=== PATIENT | female | born 1990 | race Asian ===

== ENCOUNTER 2020-01-10 12:57 | Emergency (ER) | payer BC, SELFPAY ==
--- NOTE | ~2020-01-10 | XR_ITS ---
EXAMINATION: XR abdomen/kub 1V DATE: 01/10/2020 13:55 INDICATION: Abdominal pain TECHNIQUE: A supine view of the abdomen was obtained. COMPARISON: 05/26/2019 FINDINGS: Moderate amount of stool scattered throughout the colon. No dilated gas-filled loops of bowel to sugg est obstruction. Unchanged pattern of small calcified phleboliths in the pelvis. Bilateral hypoplasti c riblets at L1. The tiny density previously seen overlying the tip of the left sciatic riblet is no longer visualized and may have represented a renal stone. No other suspicious calcifications in the a bdomen or pelvis. Small left-sided os acetabuli. IMPRESSION: 1. Normal bowel gas pattern. No evident urolithiasis. Reviewed, dictated and finalized at location A. SALES MANAGER
--- NOTE | 2020-01-10 13:02 | ED.GENADULT ---
HPI - General Adult General Chief complaint: Abdominal Pain Stated complaint: Abdominal Pain Time Seen by Provider: 01/10/20 13:24 Source: patient Mode of arrival: ambulatory Limitations: no limitations History of Present Illness HPI narrative: 29-year-old female patient presents to the [facility] with complaints of left-sided flank pain that started abruptly this morning. Patient states for the last couple of days she has had some nausea. Patient states that her last period was about 32 days ago when she is trying to actively get . Patient denies any vomiting or diarrhea. Patient states she has had some abdominal cramping recently. Patient denies any fevers, chest pain or shortness of breath. Patient denies any pain with urination. Related Data Home Medications Medication Instructions Recorded Confirmed 01/10/20 Allergies Allergy/AdvReac Type Severity Reaction Status Date / Time Sulfa (Sulfonamide Allergy Intermediate Vomiting Verified 12/26/19 13:23 Antibiotics) Review of Systems Review of Systems: Narrative: CONSTITUTIONAL: Denies fever, chills, or sweats. EYES: Denies visual changes, redness, or discharge. ENT: Denies rhinorrhea, congestion, sore throat, or otalgia. CARDIOVASCULAR: Denies chest pain, palpitations, or edema. RESPIRATORY: Denies cough or dyspnea. GASTROINTESTINAL: Denies abdominal pain, positive nausea, denies vomiting, or diarrhea. Positive left flank pain GENITOURINARY: Denies dysuria or hematuria. SKIN: Denies rash or itching. MUSCULOSKELETAL: Denies back pain, joint pain, or myalgia. NEUROLOGIC: Denies headache, numbness, or weakness. PSYCHIATRIC: Denies anxiety or depression. [facility] Past Medical History Medical History Congenital hypothyroidism with diffuse goiter Generalized anxiety disorder Migraine without aura and without status migrainosus, not intractable Social History Social History Smoking status: Never smoker Alcohol intake: current Comments At the time of my signature I agree with nursing past medical history, surgical, social, and family history. There is no relevant family history pertinent to the presenting complaint. Exam Narrative: Exam Narrative: GENERAL: Well-appearing, well-nourished, and in no acute distress. HEAD: Normocephalic, atraumatic. EYES: PERRLA and EOMI. ENT: Nares clear, no rhinorrhea or epistaxis. Mucous membranes moist. NECK: Supple. No lymphadenopathy CHEST: Clear to auscultation. No respiratory distress. HEART: Regular rate and rhythm. No murmur heard. Normal peripheral pulses. ABDOMEN: Soft, flat, nondistended. No guarding, rebound tenderness, or rigid. Patient complains of overall abdominal cramping but no specific pains in any specific quadrant on palpation. No pulsatilla masses. Bowel sounds present in all four quadrants. No organomegaly. Negative Yancey?s sign. No periumbicial tenderness. No Supra public tenderness or distension. Good femoral pulses bilaterally. No hernia noted. No scars or surface trauma. Patient does have some left CVA tenderness on percussion. EXTREMITIES: Normal range of motion. No edema. SKIN: Warm, dry, no rash. NEURO: No focal deficits. Alert and oriented x3. Course Reevaluation(s) Reevaluation #1: Patient is apprehensive about taking the x-ray because she is concerned that her test today could be a false negative. Discussed with patient the pros and cons of doing x-ray today. Discussed with her that if she feels uncomfortable with that she could follow-up with her primary doctor and possibly get an ultrasound to evaluate for possible kidney stone as well as some blood work to see if she truly is . Discussed this with patient. Patient states that she also discussed that with the mother and patient has decided to go ahead and do the x-ray today to look for the kidney
[2020-01-10 13:05] VITALS: BP 115/73; PULSE 77; RESP 16; TEMP 36.6; O2SAT 100
--- NOTE | 2020-01-10 13:17 | PC.NURSE ---
in br to obtain ua spec.
--- NOTE | 2020-01-10 14:12 | PC.NURSE ---
lot boss at bedside with xray result.
== END 2020-01-10 14:25 | disposition home or self-care (01) ==
PROVIDERS: Emergency Provider Nurse Practitioner Family; PCP Family Medicine
DX: R10.9 Unspecified abdominal pain (principal); M62.838 Other muscle spasm; K59.00 Constipation, unspecified; E03.0 Congenital hypothyroidism with diffuse goiter; F41.9 Anxiety disorder, unspecified
CPT/HCPCS: 74018; 81003; 81025; 99213; G0463

== ENCOUNTER 2020-08-31 11:55 | Outpatient (CLI) | payer BC, SELFPAY ==
[2020-08-31 12:34] LABS: Basophils Percent Auto 0.3 % (0.2-1.2); Eosinophils Absolute Auto 0.2 K/mm3 (0-0.3); Eosinophils Percent Auto 2.1 % (0-4.4); Hematocrit 35.7 % (37.0-47.0); Hemoglobin 11.8 g/dL (12.0-15.0); Immature Granulocyte Absolute 0.06 K/mm3 (0.00-0.031); Immature Granulocyte Percent A 0.6 % (0-0.5); Lymphocytes Absolute Auto 2.27 K/mm3 (0.9-3.2); Lymphocytes Percent Auto 23.6 % (18.3-44.2); Mean Corpuscular HGB Conc 33.1 g/dl (32-36); Mean Corpuscular Hemoglobin 27.8 pg (26-34); Monocytes Absolute Auto 0.5 K/mm3 (0.1-0.6); Monocytes Percent Auto 5.5 % (2.6-8.5); Neutrophils Absolute Auto 6.5 K/mm3 (1.3-6.7); Neutrophils Percent Auto 67.9 % (45.5-73.1); Platelet Count Result 283 k/mm3 (150-375); Red Blood Count 4.25 M/mm3 (4.2-5.4); Red Cell Distribution Width 13.5 % (11.5-14.5); White Blood Count 9.6 K/mm3 (4.5-10.0)
[2020-08-31 13:29] LABS: HIV 1/2 Ab P24 Ag Result Negative (Negative)
[2020-08-31 13:29] LABS: Hepatitis B Surface Antigen Negative (Negative)
[2020-08-31 13:45] LABS: Hepatitis C Virus Antibody Negative (Negative)
[2020-08-31 14:23] LABS: Add Urine Microscopic? YES; Appearance Urine Cloudy (Clear); Bacteria Urine 2+ /hpf; Bilirubin Urine Negative (Negative); Blood Urine Negative (Negative); Color Urine Yellow (Yellow); Glucose Urine UA Negative (Negative); Ketones Urine 1+ mg/dL (Negative); Leukocyte Esterase Ur 1+ LEU/UL (NEGATIVE); Mucus Urine Moderate /lpf; Nitrate Urine Negative (Negative); Protein Urine Negative (Negative); Specific Grav Ur 1.016 (1.001-1.035); Squamous Epithelial Cell Urine Moderate /hpf (Few); Urobilinogen Urine Negative mg/dL (<2.0)
[2020-08-31 15:28] LABS: Rubella IgG Antibody > 120.0 IU/ML
[2020-09-03 11:55] LABS: Rapid Plasma Reagin Non-Reactive (NonReactive)
[2020-09-06 11:50] LABS: Hematocrit 36.5 % (35.0-45.0); Hemoglobin 11.9 g/dL (11.7-15.5); MCV 85.9 FL (80.0-100.0); RDW 15.1 % (11.0-15.0); Red Blood Cell Count 4.25 Mill/uL (3.80-5.10)
[2020-09-10 16:01] LABS: CF Result NEGATIVE (NEGATIVE)
== END 2020-08-31 11:56 | disposition home or self-care (01) ==
PROVIDERS: PCP Family Medicine; Visit Provider Student in an Organized Health Care Education/Training Program
DX: Z34.90 Encounter for supervision of normal pregnancy, unspecified, unspecified trimester (principal)
CPT/HCPCS: 36415; 81001; 81220; 81243; 82306; 83021; 84443; 85025; 86592; 86703; 86762; 86787; 86803; 86850; 86900; 86901; 87086; 87340; G0432

== ENCOUNTER 2020-11-30 13:03 | Outpatient (CLI) | payer BC, SELFPAY ==
[2020-11-30 14:41] LABS: Basophils Percent Auto 0.2 % (0.2-1.2); Eosinophils Absolute Auto 0.2 K/mm3 (0-0.3); Eosinophils Percent Auto 1.8 % (0-4.4); Hematocrit 32.7 % (37.0-47.0); Hemoglobin 10.6 g/dL (12.0-15.0); Immature Granulocyte Absolute 0.17 K/mm3 (0.00-0.031); Immature Granulocyte Percent A 1.8 % (0-0.5); Lymphocytes Absolute Auto 1.96 K/mm3 (0.9-3.2); Lymphocytes Percent Auto 20.4 % (18.3-44.2); Mean Corpuscular HGB Conc 32.4 g/dl (32-36); Mean Corpuscular Volume 86.5 fl (80-100); Mean Platelet Volume 9.2 fl (7.4-10.4); Monocytes Absolute Auto 0.6 K/mm3 (0.1-0.6); Monocytes Percent Auto 6.1 % (2.6-8.5); Neutrophils Absolute Auto 6.7 K/mm3 (1.3-6.7); Neutrophils Percent Auto 69.7 % (45.5-73.1); Platelet Count Result 296 k/mm3 (150-375); Red Blood Count 3.78 M/mm3 (4.2-5.4); Red Cell Distribution Width 13.2 % (11.5-14.5); White Blood Count 9.6 K/mm3 (4.5-10.0)
[2020-11-30 14:52] LABS: Glucose 1 Hour PP 50gm Dose 171 mg/dL
== END 2020-11-30 13:04 | disposition home or self-care (01) ==
PROVIDERS: PCP Family Medicine; Visit Provider Student in an Organized Health Care Education/Training Program
DX: Z34.90 Encounter for supervision of normal pregnancy, unspecified, unspecified trimester (principal); Z3A.00 Weeks of gestation of pregnancy not specified
CPT/HCPCS: 36415; 82947; 85025

== ENCOUNTER 2020-12-07 12:06 | Outpatient (CLI) | payer BC, SELFPAY ==
[2020-12-07 13:26] LABS: Glucose Fasting Gestational 84 mg/dL (>/=95)
[2020-12-07 15:00] LABS: Glucose 1 Hour Gest 183 mg/dL (>/=180)
[2020-12-07 15:59] LABS: Glucose 2 Hour Gest 178 mg/dL (>/= 155)
[2020-12-07 16:50] LABS: Glucose 3 Hour Gest 162 mg/dL (>/=140)
== END 2020-12-07 12:07 | disposition home or self-care (01) ==
LOC: ANHLAB 12:07
PROVIDERS: PCP Family Medicine; Visit Provider Student in an Organized Health Care Education/Training Program
DX: O99.810 Abnormal glucose complicating pregnancy (principal); Z3A.00 Weeks of gestation of pregnancy not specified
CPT/HCPCS: 36415; 82951; 82952

== ENCOUNTER 2020-12-14 14:40 | Outpatient (CLI) | payer BC, SELFPAY ==
[2020-12-14 16:39] LABS: Free T4 Free Thyroxine 0.79 ng/mL (0.78-2.19)
[2020-12-18 06:37] LABS: Triiodothyronine T3 Free 2.4 pg/mL (2.3-4.2)
== END 2020-12-14 14:41 | disposition home or self-care (01) ==
LOC: ANHLAB 14:41
PROVIDERS: PCP Family Medicine; Visit Provider Student in an Organized Health Care Education/Training Program
DX: O24.419 Gestational diabetes mellitus in pregnancy, unspecified control (principal); Z3A.00 Weeks of gestation of pregnancy not specified
CPT/HCPCS: 36415; 84439; 84443; 84481

== ENCOUNTER 2020-12-31 13:59 | Outpatient (RCR) | payer BC, SELFPAY | END 2021-03-18 10:28 | disposition home or self-care (01) | LOC: ANHDMC 13:59 | PROVIDERS: PCP Family Medicine; Visit Provider Student in an Organized Health Care Education/Training Program | DX: O24.419 Gestational diabetes mellitus in pregnancy, unspecified control (principal); Z3A.00 Weeks of gestation of pregnancy not specified; Z71.89 Other specified counseling | CPT/HCPCS: G0108 ==

== ENCOUNTER 2021-01-11 13:43 | Outpatient (CLI) | payer BC, SELFPAY ==
[2021-01-11 14:07] LABS: Basophils Percent Auto 0.3 % (0.2-1.2); Eosinophils Absolute Auto 0.2 K/mm3 (0-0.3); Eosinophils Percent Auto 1.5 % (0-4.4); Hematocrit 33.6 % (37.0-47.0); Immature Granulocyte Absolute 0.13 K/mm3 (0.00-0.031); Immature Granulocyte Percent A 1.3 % (0-0.5); Lymphocytes Absolute Auto 2.55 K/mm3 (0.9-3.2); Lymphocytes Percent Auto 25.2 % (18.3-44.2); Mean Corpuscular HGB Conc 32.7 g/dl (32-36); Mean Corpuscular Hemoglobin 27.2 pg (26-34); Mean Platelet Volume 9.5 fl (7.4-10.4); Monocytes Absolute Auto 0.6 K/mm3 (0.1-0.6); Neutrophils Absolute Auto 6.6 K/mm3 (1.3-6.7); Neutrophils Percent Auto 65.7 % (45.5-73.1); Platelet Count Result 267 k/mm3 (150-375); Red Blood Count 4.05 M/mm3 (4.2-5.4); Red Cell Distribution Width 13.1 % (11.5-14.5); White Blood Count 10.1 K/mm3 (4.5-10.0)
[2021-01-11 15:09] LABS: HIV 1/2 Ab P24 Ag Result Negative (Negative)
[2021-01-13 09:06] LABS: Rapid Plasma Reagin Non-Reactive (NonReactive)
== END 2021-01-11 13:44 | disposition home or self-care (01) ==
PROVIDERS: PCP Family Medicine; Visit Provider Student in an Organized Health Care Education/Training Program
DX: Z34.03 Encounter for supervision of normal first pregnancy, third trimester (principal); Z3A.00 Weeks of gestation of pregnancy not specified
CPT/HCPCS: 36415; 85025; 86592; 86703; G0432

== ENCOUNTER 2021-02-10 10:56 | Outpatient (CLI) | payer BC, SELFPAY ==
[2021-02-10 14:01] LABS: Collection Time Urine 24 HOURS
[2021-02-10 14:32] LABS: Creatinine Urine 52.1 mg/dL; Patient Weight 169 Lbs; Total Protein Urine Random 15 mg/dL
[2021-02-10 14:35] LABS: Creatinine Clearance Urine 87.6 ml/min (75-125); Total Protein Urine 24 Hr 315 MG/DAY (28-141); Total Volume 24 Hour Urine 2100 ml
== END 2021-02-10 10:57 | disposition home or self-care (01) ==
LOC: ANHOBOP 11:49
PROVIDERS: Visit Provider Student in an Organized Health Care Education/Training Program
DX: Z34.90 Encounter for supervision of normal pregnancy, unspecified, unspecified trimester (principal); Z3A.00 Weeks of gestation of pregnancy not specified
CPT/HCPCS: 81050; 82575; 84156

== ENCOUNTER 2021-02-15 12:50 | Outpatient (RCR) | payer BC, SELFPAY ==
[2021-02-08 14:19] LABS: Basophils Percent Auto 0.4 % (0.2-1.2); Eosinophils Absolute Auto 0.1 K/mm3 (0-0.3); Hematocrit 35.1 % (37.0-47.0); Hemoglobin 11.5 g/dL (12.0-15.0); Immature Granulocyte Absolute 0.16 K/mm3 (0.00-0.031); Immature Granulocyte Percent A 1.8 % (0-0.5); Lymphocytes Absolute Auto 2.53 K/mm3 (0.9-3.2); Lymphocytes Percent Auto 28.5 % (18.3-44.2); Mean Corpuscular HGB Conc 32.8 g/dl (32-36); Mean Corpuscular Hemoglobin 26.9 pg (26-34); Mean Platelet Volume 10.4 fl (7.4-10.4); Monocytes Absolute Auto 0.7 K/mm3 (0.1-0.6); Monocytes Percent Auto 7.5 % (2.6-8.5); Neutrophils Absolute Auto 5.4 K/mm3 (1.3-6.7); Neutrophils Percent Auto 60.8 % (45.5-73.1); Platelet Count Result 245 k/mm3 (150-375); Red Blood Count 4.28 M/mm3 (4.2-5.4); Red Cell Distribution Width 14.1 % (11.5-14.5); White Blood Count 8.9 K/mm3 (4.5-10.0)
[2021-02-08 14:36] LABS: Alanine Aminotransferase 20 U/L (4-35); Albumin Level 3.5 g/dL (3.5-5.1); Alkaline Phosphatase 314 U/L (38-126); Anion Gap 7 mmol/L (8-16); Aspartate Amino Transferase 30 U/L (14-36); Bilirubin,Total 0.5 mg/dL (0.2-1.3); Blood Urea Nitrogen 7 mg/dL (7-17); Calcium 8.9 mg/dL (8.4-10.2); Carbon Dioxide 23 mmol/L (22-30); Chloride 106 mmol/L (98-107); Estimated Glomerular Filt Rate > 60; Glucose 85 mg/dL (65-105); Potassium 4.4 mmol/L (3.4-5.0); Sodium 136 mmol/L (137-145); Uric Acid 5.9 mg/dL (2.5-7.5)
[2021-02-08 14:39] LABS: Creatinine Urine 140.5 mg/dL; Total Protein Urine Random 13 mg/dL; Ur Ttl Prot Creatinine Ratio 0.09 mg/mg (0-0.20)
[2021-02-08 14:49] LABS: Add Urine Microscopic? YES; Appearance Urine Cloudy (Clear); Bacteria Urine 3+ /hpf; Bilirubin Urine Negative (Negative); Blood Urine Negative (Negative); Color Urine Amber (Yellow); Glucose Urine UA Negative (Negative); Ketones Urine Negative (Negative); Leukocyte Esterase Ur 3+ LEU/UL (NEGATIVE); Mucus Urine Moderate /lpf; Nitrate Urine Negative (Negative); Protein Urine 1+ mg/dL (Negative); Specific Grav Ur 1.015 (1.001-1.035); Squamous Epithelial Cell Urine Many /hpf (Few); WBC Urine 31-50 /hpf (0-3)
[2021-02-08 16:05] VITALS: BP 117/99; PULSE 112
--- NOTE | ~2021-02-15 | US_ITS ---
EXAMINATION: US OB BPP wo non-stress EXAM DATE: 02/15/2021 14:01 INDICATION: Elevated blood pressure. 3rd trimester. TECHNIQUE: Pelvic obstetrical transabdominal sonogram was performed by a technologist. There are mu ltiple grayscale and Doppler images available for interpretation. Comparison is made to prior examina tion from 02/08/2021. FINDINGS: There is a single fetus identified in vertex presentation with a heart rate of 159 beats pe r minute. The placenta is located in the anterior position. There is no sonographic evidence of retr oplacental hemorrhage identified. BIOPHYSICAL PROFILE (performed by the technologist) breathing (30 sec sustained breathing in 30 minutes): 2 out of 2 movement (3 gross body movements in 30 minutes): 2 out of 2 tone (one episode of znxdpkh-nwckymgcv-lxqiwnm limb movement): 2 out of 2 Amniotic fluid pocket (2 cm): 2 out of 2 Total score: 8 out of 8 IMPRESSION: 1. Single fetus with heart rate of 159 bpm. 2. Normal biophysical profile score of 8 out of 8. Reviewed, dictated and finalized at location A.
--- NOTE | ~2021-02-15 | US_ITS ---
EXAMINATION: US OB BPP wo non-stress DATE: 02/01/2021 14:13 CDT INDICATION: Evaluate well-being. Gestational diabetes. TECHNIQUE: Real-time transabdominal obstetric ultrasound. FINDINGS: No prior studies for comparison. There is a single living fetus in vertex presentation. The placenta is anterior without placenta pre via. Amniotic fluid is subjectively normal. cardiac activity and movement is noted with a heart rate of 171 beats per minute. A utomated exposure control and iterative reconstruction technique were employed. Biophysical profile: breathin of 2 movement: 2 of 2 tone: 2 of 2 Amniotic flud pocket: 2 of 2 Total score: 8 of 8 IMPRESSION: 1. Single living intrauterine in vertex presentation. 2: Total biophysical profile score of 8/8. Reviewed, dictated and finalized at location B.
--- NOTE | ~2021-02-15 | US_ITS ---
EXAMINATION: US OB BPP wo non-stress EXAM DATE: 02/08/2021 13:45 INDICATION: Gestational diabetes. 3rd trimester. TECHNIQUE: Pelvic obstetrical transabdominal sonogram was performed by a technologist. There are mu ltiple grayscale and Doppler images available for interpretation. There are no earlier studies of th is gestation for comparison. FINDINGS: There is a single fetus identified in vertex presentation with a heart rate of 157 beats pe r minute. The placenta is located in the anterior position. There is no sonographic evidence of retr oplacental hemorrhage identified. Incidental note made of some placental venous lakes. BIOPHYSICAL PROFILE (performed by the technologist) breathing (30 sec sustained breathing in 30 minutes): 2 out of 2 movement (3 gross body movements in 30 minutes): 2 out of 2 tone (one episode of oasryxf-cylnfkahe-miljjrv limb movement): 2 out of 2 Amniotic fluid pocket (2 cm): 2 out of 2 Total score: 8 out of 8 IMPRESSION: 1. Single fetus with heart rate of 157 bpm. 2. Normal biophysical profile score of 8 out of 8. Reviewed, dictated and finalized at location A.
[2021-02-15 13:24] VITALS: BP 117/93; PULSE 97
== END 2021-02-22 07:34 | disposition home or self-care (01) ==
LOC: ANHOBOP 12:50
PROVIDERS: Visit Provider Student in an Organized Health Care Education/Training Program
DX: O24.419 Gestational diabetes mellitus in pregnancy, unspecified control (principal); Z3A.00 Weeks of gestation of pregnancy not specified
CPT/HCPCS: 36415; 59025; 76819; 80053; 81001; 82570; 84156; 84550; 85025; 87086

== ENCOUNTER 2021-02-20 16:57 | Inpatient (IN) | payer BC, SELFPAY ==
[2021-02-20] VITALS (28 sets, daily range): BP systolic 109–135; BP diastolic 63–97; PULSE 81–146; RESP 20–24; TEMP 36.4–37.6; O2SAT 99–100; BMI 26.5
--- NOTE | 2021-02-20 17:22 | WPDANESEPPF ---
Anes - Initial Pre Proc Eval Procedure: labor epidural Date/Time: 02/20/21 17:22 Surgeon: Arelis Jimenez MD Pre Op Diagnosis: labor pain Pre Op Diagnosis: induction Patient Data Age: 30 Gender: F Height: Weight: Allergies Allergy/AdvReac Type Severity Reaction Status Date / Time Sulfa (Sulfonamide Allergy Intermediate Vomiting Verified 02/15/21 12:10 Antibiotics) Home Medications Medication Instructions Recorded Confirmed Type cholecalciferol (vitamin D3) 1,250 50,000 unit PO WEEKLY #24 cap 01/03/20 02/20/21 Rx mcg (50,000 unit) capsule levothyroxine 150 mcg tablet 150 mcg PO DAILY #90 tablet 04/11/20 02/15/21 Rx levothyroxine 25 mcg tablet 25 mcg PO DAILY #90 tablet 04/11/20 02/15/21 Rx sertraline 100 mg tablet 100 mg PO DAILY #90 tablet 04/11/20 02/15/21 Rx docosahexaenoic acid 200 mg capsule 200 mg PO DAILY 07/27/20 02/15/21 History ferrous sulfate 325 mg (65 mg 325 mg PO DAILY #90 tablet 12/04/20 02/15/21 Rx iron) tablet blood sugar diagnostic #100 ea 12/14/20 12/14/20 Rx blood-glucose meter #1 ea 12/14/20 12/14/20 Rx lancets 32 gauge #100 ea 12/14/20 12/14/20 Rx docusate sodium 100 mg capsule 100 mg PO DAILY 02/08/21 02/15/21 History Patient hx anesthesia problems: none Family hx anesthesia problems: none PMFSH Past Medical History Medical History (Updated 02/20/21 @ 17:23 by Samm José DO) Congenital hypothyroidism with diffuse goiter Generalized anxiety disorder Gestational diabetes Migraine without aura and without status migrainosus, not intractable Preeclampsia Surgical History Surgical History [place] teeth extracted Family History Family History Father Diabetes mellitus Acute myocardial infarction Social History Social History Smoking status: Never smoker Alcohol intake: current Substance use: never Gender identity (if verbalized by the patient): Female Spiritual care concerns: No Anes - Eval Final PreProcedure Day of Procedure 02/20/21 17:22 Patient weight: overweight ASA classification: III Anesthesia type and monitoring: regional epidural Informed Consent: The patient's anesthetic plan and its attendant risks and benefits were discussed with the patient/family/POA. Questions were solicited and answers provided to the satisfaction of the patient/family/POA.
[2021-02-20 17:28] LABS: Basophils Percent Auto 0.3 % (0.2-1.2); Eosinophils Absolute Auto 0.1 K/mm3 (0-0.3); Eosinophils Percent Auto 0.6 % (0-4.4); Hematocrit 34.2 % (37.0-47.0); Hemoglobin 11.6 g/dL (12.0-15.0); Immature Granulocyte Percent A 1.1 % (0-0.5); Lymphocytes Absolute Auto 2.43 K/mm3 (0.9-3.2); Lymphocytes Percent Auto 27.5 % (18.3-44.2); Mean Corpuscular HGB Conc 33.9 g/dl (32-36); Mean Corpuscular Hemoglobin 27.7 pg (26-34); Mean Corpuscular Volume 81.6 fl (80-100); Mean Platelet Volume 10.6 fl (7.4-10.4); Monocytes Absolute Auto 0.5 K/mm3 (0.1-0.6); Neutrophils Absolute Auto 5.7 K/mm3 (1.3-6.7); Neutrophils Percent Auto 64.5 % (45.5-73.1); Platelet Count Result 253 k/mm3 (150-375); Red Blood Count 4.19 M/mm3 (4.2-5.4); Red Cell Distribution Width 15.1 % (11.5-14.5); White Blood Count 8.9 K/mm3 (4.5-10.0)
--- NOTE | 2021-02-20 17:30 | LDADM ---
This patient, Estephania Ring, was admitted to Labor/Delivery/Recovery 106 on 02/20/21 at 16:57. Plans for labor, pain management and were discussed with patient. Patient/family oriented to hospital policies and general routines including ID bracelet, bed and alarms, visiting hours, pain management, procedures, bathroom and other care routines, personal items, smoking policy, room service/diet and guest tray routines, infant security routines, and visiting hours. Patient/Family are encouraged to report perceived risks to care and to ask questions if they do not understand what they are told or what they should do. See OBIX for further documentation.
[2021-02-20 17:38] LABS: Alanine Aminotransferase 19 U/L (4-35); Albumin Level 3.3 g/dL (3.5-5.1); Alkaline Phosphatase 348 U/L (38-126); Anion Gap 8 mmol/L (8-16); Aspartate Amino Transferase 28 U/L (14-36); Bilirubin,Total 0.5 mg/dL (0.2-1.3); Blood Urea Nitrogen 7 mg/dL (7-17); Carbon Dioxide 19 mmol/L (22-30); Chloride 110 mmol/L (98-107); Estimated CRCL calculation 98 ml/min; Estimated Glomerular Filt Rate > 60; Glucose 128 mg/dL (65-105); Potassium 3.5 mmol/L (3.4-5.0); Sodium 137 mmol/L (137-145); Uric Acid 6.3 mg/dL (2.5-7.5)
[2021-02-20] MEDS: DINOPROSTONE 10 MG VAG INSERT VAGINAL (17:43)
[2021-02-20 19:59] LABS: Glucose Point of Care 78 (65-105)
[2021-02-20] MEDS: ZOLPIDEM TARTRATE (*CRX) 5 MG TABLET PO (20:31)
[2021-02-20] MEDS: LACTATED RINGERS 1,000 ML 125 ML IV CONT (21:24)
[2021-02-20] MEDS: fentaNYL CITRATE INJ (*CRX) 100 MCG/2 ML VIAL 50 MCG IV PUSH (21:29)
[2021-02-21] VITALS (192 sets, daily range): BP systolic 95–259; BP diastolic 42–237; PULSE 31–196; RESP 17–18; TEMP 36.8–37.7; O2SAT 77–100
[2021-02-21 00:30] LABS: Glucose Point of Care 75 (65-105)
[2021-02-21] MEDS: LACTATED RINGERS 1,000 ML 125 ML IV CONT ×3 (00:31→09:10)
[2021-02-21] MEDS: ONDANSETRON INJ 4 MG/2 ML VIAL IV PUSH (04:41)
[2021-02-21 04:48] LABS: Glucose Point of Care 96 (65-105)
[2021-02-21] MEDS: OXYTOCIN 30 UNITS/NS 500 ML 30 UNITS/500 ML BAG 6 UNITS IV CONT (05:20)
[2021-02-21] MEDS: fentaNYL CITRATE INJ (*CRX) 100 MCG/2 ML VIAL 50 MCG IV PUSH (06:24)
--- NOTE | 2021-02-21 07:21 | PC.NURSE ---
Pt requests that no males be present in her room at any time - only is absolutely necessary. AMERICA Norton, was approached about this situation due to desire for epidural at some point. Cierra acknowledged and will do what she can to make this possible. Will continue to monitor pt.
[2021-02-21 08:52] LABS: Rapid Plasma Reagin Non-Reactive (NonReactive)
[2021-02-21 09:05] LABS: Glucose Point of Care 80 (65-105)
--- NOTE | 2021-02-21 09:08 | PM.IMHP ---
H&P: HPI History of Present Illness Date/Time: 02/21/21 09:08 The patient is a 30-year-old last menstrual period 06/06/2020 currently 37 weeks gestation who presented to labor and delivery for a medically indicated induction of labor for preeclampsia and gestational diabetes. BONI 03/13/2021. Patient is dated by last menstrual period which is consistent with an ultrasound on 08/03/2020 at 8 weeks gestation. Patient has a history of gestational diabetes that is diet controlled. She has done well and remained euglycemic. Approx. 2 weeks ago, patient was noted to have persistently elevated DBP. A 24 hr urine collection was obtained and showed 348mg protein. Patient met criteria for preeclampsia without severe features and decision was made to deliver her at 37 weeks gestation. She reports feeling well today. Denies any vaginal bleeding, leakage of fluid, or contractions. Reports good movement. Also denies any headache, chest pain, SOB, N/V, visual disturbances, or RUQ tenderness. Chief Complaint: preeclampsia Review of Systems Review of Systems: All systems reviewed & are unremarkable except as noted in HPI and below Constitutional: Constitutional: Reports as per HPI, Reports no additional constitutional complaints, Denies chills, Denies fever(s), Denies headache(s) and Denies night sweats Eyes: Eyes: Reports as per HPI and Reports no additional eye complaints ENT: Reports system reviewed and no additional complaints, except as documented, Reports as per HPI, Reports Normal hearing present and Denies headache(s) Cardiovascular: Cardiovascular: Reports as per HPI, Reports no additional cardiovascular complaints, Denies chest pain and Denies dyspnea Respiratory: Respiratory: Reports as per HPI, Reports no additional respiratory complaints, Denies cough and Denies dyspnea Gastrointestinal: Gastrointestinal: Reports as per HPI, Reports no additional gastrointestinal complaints, Denies abdominal pain, Denies change in bowel habits, Denies change in stool character, Denies nausea and Denies vomiting Genitourinary: Genitourinary: Reports no additional female genitourinary complaints, Reports as per HPI, Denies abnormal vaginal bleeding, Denies genital lesions, Denies hot flashes, Denies dyspareunia, Denies pelvic pain, Denies sexual dysfunction, Denies urinary incontinence, Denies vaginal discharge, Denies vaginal dryness and Denies vaginal odor Musculoskeletal: Musculoskeletal: Reports no additional musculoskeletal complaints and Reports as per HPI Integumentary/Breasts: Skin/Breast: Reports system reviewed and no additional complaints, except as docu, Reports as per HPI, Denies breast pain and Denies nipple discharge Neurologic: Reports system reviewed and no additional complaints, except as documented, Reports as per HPI, Reports Normal hearing present and Denies headache(s) Psychiatric: Psychiatric: Reports no additional psychiatric complaints, Reports as per HPI, Denies anxiety and Denies depression Endocrine: Endocrine: Reports no additional endocrine complaints and Reports as per HPI Hematologic/Lymphatic: Hematologic/Lymphatic: Reports no additional hematologic/lymphatic complaints and Reports as per HPI Allergic/Immunologic: Allergic/Immunologic: Reports no additional allergic/immunologic complaints and Reports as per HPI PMFSH Past Medical History Medical History Congenital hypothyroidism with diffuse goiter Generalized anxiety disorder Gestational diabetes Migraine without aura and without status migrainosus, not intractable Preeclampsia Surgical History Surgical History [place] teeth extracted Family History Family History Father Diabetes mellitus Acute myocardial infarction Social History Social History Smoking status:
[2021-02-21 10:53] LABS: Glucose Point of Care 82 (65-105)
[2021-02-21 13:03] LABS: Glucose Point of Care 71 (65-105)
[2021-02-21] MEDS: OXYTOCIN 30 UNITS/NS 500 ML 30 UNITS/500 ML BAG 125 UNITS IV CONT (14:50)
--- NOTE | 2021-02-21 16:05 | PC.NURSE ---
QBL of 745mL called to the office of Dr Jimenez per her request.
--- NOTE | 2021-02-21 16:34 | WPDHPUPDATE1 ---
History and Physical Update Update Date/Time: 02/21/21 16:34 History and Physical has been reviewed, including an updated exam of the patient. There are NO changes in the patient's condition. Risks, benefits, and alternatives have been discussed and questions answered. Patient agrees to proceed with procedure.
--- NOTE | 2021-02-21 16:34 | PM.OBPRVD ---
OB - Delivery Note Procedure Delivery date: 02/21/21 Procedure: The patient is a 30-year-old now who presented to labor and delivery on the evening of 02/20/2021 at 37 weeks gestation for scheduled induction of labor secondary to preeclampsia and gestational diabetes. Induction of labor was started with Cervidil. Initial cervical exam was closed/50/-3. Shortly after insertion of Cervidil, patient was noted to be julius every 1-3 minutes. [address] remained in place for approximately 4 hours after which time it was removed due to tachysystole. Patient was allowed to rest and contractions subsided. Cervical exam was approximately 3 cm dilated. On the morning of 02/21/2021, pitocin was started. Artificial rupture membranes was performed at 8:05 a.m. Clear amniotic fluid was noted. Cervical exam was 4/80/-2. Patient reported an increase in the frequency and intensity of contractions. She requested an epidural for pain management which was placed without difficulty. Patient continued to make progressive cervical change. She was noted to be fully dilated at 1:30 p.m. Patient was encouraged to push and found to be pushing well. Upon MD arrival to the patient's room, it was noted that patient had sustained a laceration while pushing and approximately 300 cc of blood was on chux beneath patient. She was prepped and draped for delivery. At 2:23 p.m., patient delivered head in SHAKIR presentation atraumatically and without difficulty. Occiput restituted to maternal left side. With subsequent push, the infant's neck, shoulders, and rest of body delivered without difficulty. The was crying spontaneously. Infant's nose and mouth were suctioned with bulb suction and the infant was placed on maternal abdomen where care was assumed by awaiting nursing staff. Delayed cord clamping was performed for approximately 30 seconds at which time, significant vaginal bleeding was noted. The cord was quickly clamped and cut. A segment of cord was collected for cord gases. Cord blood was also collected. The placenta was delivered spontaneously and intact. A few clots were evacuated from the lower uterine segment. The fundus was firm with bimanual massage. Bleeding persisted. On inspection, a few areas of bleeding were noted with a prominent vessel bleeding along the perineum near introitus. The labia and vagina were also moderately edematous. Moderate bleeding was also noted from a left vaginal wall laceration as well as a right labial/periurethral laceration with extension to clitoris. A few areas along the perineum and left vaginal wall were also noted to be abraded superficially. The right labial/periurethral laceration was repaired with 3-0 vicryl. Excellent hemostasis was noted. The left vaginal wall and perineal lacerations were repaired with 2-0 and 3-0 vicryl. Due to the edematous tissue, however, hemostasis took a while as the tissue bled with each throw of the needle. When bleeding subsided to a scant trickle, decision was made to insert vaginal packing for pressure application. A castelan catheter was inserted using aseptic technique and vaginal packing coated with lubricating jelly was inserted. The patient was then cleansed and dried. QBL for entire delivery was 745 cc, with the majority of blood loss from lacerations sustained prior to and after delivery. The infant was a live-born female , Apgars 9 and 9, weighing 7 lb 3 oz. Both mother and baby doing well at the end of delivery. events: Gestational Diabetes, Pre-Eclampsia and Labor Induction Intrapartal events: None and Mild Preeclampsia Induction method: per cervidil protocol Delivery augmentation: rupture of membranes and pitocin Delivery monitor: external FHT and external uterine Route of delivery: Laceration Description: Perineal - 1st Degree, Vaginal - 1st Degree (left vaginal wall) and Labial (right labial with extension to clitoris) Delivery repair: vicryl Specimen: Yes (placenta and cord, cord blo
--- NOTE | 2021-02-21 17:33 | PC.NURSE ---
Dr Jimenez contacted due to pt pulse and BP still being elevated at time of transfer to PP. Orders given to continue to let pt settle down post delivery and just continue to monitor her. OKed to transfer to PP. Will continue to monitor.
--- NOTE | 2021-02-21 18:02 | OBPPTRN ---
Patient transferred to post room #286 via wheelchair with in crib. Support person present. Oriented to unit, room, information board, rooming in, admission packet and security measures. Patient verbalizes understanding.
[2021-02-21] MEDS: IBUPROFEN 600 MG TABLET PO (18:44)
[2021-02-21] MEDS: ACETAMINOPHEN 325 MG TABLET 650 MG PO (18:45)
[2021-02-22] VITALS (7 sets, daily range): BP systolic 119–130; BP diastolic 62–84; PULSE 75–99; RESP 14–18; TEMP 36.7–37.2; O2SAT 100
[2021-02-22] MEDS: ACETAMINOPHEN 325 MG TABLET 650 MG PO ×2 (01:21→07:51)
[2021-02-22] MEDS: IBUPROFEN 600 MG TABLET PO ×3 (01:22→14:08)
[2021-02-22 05:57] LABS: Hematocrit 25.1 % (37.0-47.0); Hemoglobin 8.2 g/dL (12.0-15.0)
[2021-02-22] MEDS: LEVOTHYROXINE SODIUM 100 MCG, LEVOTHYROXINE SODIUM 75 MCG 175 MCG PO (06:23)
[2021-02-22] MEDS: SERTRALINE HCL 50 MG TABLET 100 MG PO (06:23)
[2021-02-22] MEDS: BENZOCAINE 20% AER SPR (*SP) 56 GM CAN 1 SPRAY TOPICAL (07:50)
[2021-02-22] MEDS: MULTIVIT/MIN/PREN/FOL AC/IRON TABLET 1 TAB PO (07:50)
[2021-02-22] MEDS: WITCH HAZEL 40 PADS 1 PAD TOPICAL (07:50)
[2021-02-22] MEDS: POLYSACCHARIDE IRON COMPLEX 150 MG CAPSULE PO ×2 (07:51→17:15)
[2021-02-22] MEDS: DOCUSATE SODIUM 100 MG CAPSULE PO (07:51)
--- NOTE | 2021-02-22 08:44 | P.PNOB_ITS ---
OB - PN: Subj Subjective Date/time seen: 02/22/21 08:44 Patient doing well this morning. Reports vaginal pain mostly from vaginal packing and Castelan catheter placement and generalized discomfort following delivery and repair. Otherwise, patient denies any headache, chest pain, shortness of breath, nausea, vomiting, right upper quadrant tenderness, or visual disturbances. Has not yet ambulated with vaginal packing and Castelan catheter in place. OB - PN: Obj Data Labs CBC & Chem 7: 02/22/21 05:44 02/20/21 17:16 Labs: Laboratory Results - last 24 hr 02/20/21 02/21/21 02/21/21 17:16 08:55 10:49 Hgb Hct POC Capillary Glucose 80 82 RPR Non-reactive 02/21/21 02/22/21 13:00 05:44 Hgb 8.2 L D Hct 25.1 L POC Capillary Glucose 71 RPR OB - PN A/P Assessment and Plan (1) Normal spontaneous vaginal delivery: Code(s): O80 - Encounter for full-term uncomplicated delivery Status: Acute Assessment and Plan: PPD#1 doing well d/c castelan catheter and vaginal packing this AM pain management PRN continue routine care (2) Preeclampsia: Code(s): O14.90 - Unspecified pre-eclampsia, unspecified trimester Status: Acute Assessment and Plan: doing well BP WNL pt asymptomatic (3) Gestational diabetes: Code(s): O24.419 - Gestational diabetes mellitus in , unspecified control Status: Acute (4) Anemia: Code(s): D64.9 - Anemia, unspecified Status: Acute Time Spent With Patient Time: Total time spent is greater than 50% in coordination of care (as document ed) at patient's floor/unit and/or counseling patient: Exam Const: General: cooperative, healthy appearing, comfortable and no acute distress Urinary Catheter: Urinary Catheter: patent and draining and urine clear Extrem: Right lower extremity: no edema Left lower extremity: no edema Other: no calf tenderness
[2021-02-22] MEDS: HYDROcodone/acetaminophen (*CRX) 5-325 MG TABLET 1 TAB PO (10:46)
--- NOTE | 2021-02-22 11:00 | PC.NURSE ---
Mother called out for assist with feeding. Consulted with patient, mother reports has fed well since . Mother has nipple discomfort with latch and during the feeding. Left nipple has a small blister to center. Reviewed nipple care of lanolin, warm compresses several times per day as needed. Reviewed infant feeding cues, frequencies, duration of feedings, feeding elimination flow sheet, and signs of adequate intake. Demonstrated stimulation techniques to wake for feeding. Assisted with to breast. Reviewed positioning/alignment in football, holding breast in C hold and guided asymmetrical latch on. was able to latch within a few attempts. Infant nursed eagerly, with steady draws and frequent swallowing noted. Reviewed signs of a correct latch, effective nursing and suck swallow ratio. Infant was able to maintain latch. Mother reported tenderness at times, had slipped to shallow latch. Demonstrated how to adjust latch more deeply while feeding. Mother quickly reports she can feel infant is latched more deeply and has minimal tenderness. Suggested to stimulate while feeding to keep infant awake and nursing effectively for increased stimulation and increased intake. Instructed mother to call out for RN assistance if she is unable to latch infant for feeding or she has discomfort with nursing.
--- NOTE | 2021-02-22 13:04 | WPDANLDPN2 ---
Anes-Prog Note L&D Date/Time: 02/22/21 13:04 Comfortable throughout: labor and delivery Neuraxial method: epidural Epidural/Spinal procedure site: clean & non-tender Neuro status: Neuro function grossly intact. Cardiovascular status: normal Respiratory status: normal Airway patency: baseline Mental status: baseline Post-Op hydration status: normal Vital Signs: Last Vital Signs Temp 36.7 C 02/22/21 08:40 Pulse 95 02/22/21 08:40 Resp 18 02/22/21 08:40 BP 126/77 02/22/21 08:40 Pulse Ox 100 02/22/21 08:40 Pain score (VAS): 0 I/O: Intake & Output 02/21/21 02/22/21 02/22/21 23:59 07:59 15:59 Intake Total 1500 Output Total 2300 250 Balance -800 -250 Post-procedural complaints: none Patient feedback: Patient satisfied with anesthetic care.
--- NOTE | 2021-02-22 15:25 | PC.NURSE ---
Mother called out for observation of latch. Mother independently latched deeply in correct positioning/alignment using cross cradle. Infant nursed eagerly, with steady draws and frequent swallowing noted. Reviewed signs of a correct latch, effective nursing and suck swallow ratio. Mother reported tenderness at times, had slipped to shallow latch. Demonstrated how to adjust latch more deeply while feeding. Mother quickly reports she can feel is latched more deeply and has minimal tenderness. Suggested to stimulate infant while feeding to keep infant awake and nursing effectively for increased stimulation and increased intake. Instructed mother to call out for RN assistance if she is unable to latch infant for feeding or she has discomfort with nursing.
[2021-02-23] MEDS: IBUPROFEN 600 MG TABLET PO ×2 (01:16→07:35)
[2021-02-23 06:55] VITALS: BP 126/93; PULSE 82; RESP 16; TEMP 37; O2SAT 100
[2021-02-23] MEDS: LEVOTHYROXINE SODIUM 100 MCG, LEVOTHYROXINE SODIUM 75 MCG 175 MCG PO (06:55)
[2021-02-23] MEDS: MULTIVIT/MIN/PREN/FOL AC/IRON TABLET 1 TAB PO (07:36)
[2021-02-23] MEDS: POLYSACCHARIDE IRON COMPLEX 150 MG CAPSULE PO (07:36)
[2021-02-23] MEDS: TETANUS,DIPHTHERIA,AC PERTUSSIS ADULT (0.5 ML) BOOSTRIX IM (07:37)
--- NOTE | 2021-02-23 09:18 | PM.OBPNVD ---
OB - PN: Subj Subjective Date/time seen: 02/23/21 09:18 Patient doing well this morning. Pain well controlled with medication. Patient denies any headache, chest pain, shortness of breath, nausea, vomiting, right upper quadrant tenderness, or visual disturbances. Ambulating without difficulty. Minimal to moderate lochia. OB - PN: Obj Data Labs CBC & Chem 7: 02/22/21 05:44 02/20/21 17:16 OB - PN A/P Assessment and Plan (1) Normal spontaneous vaginal delivery: Code(s): O80 - Encounter for full-term uncomplicated delivery Status: Acute Assessment and Plan: PPD#2 doing well continue routine care discharge home in stable condition emergency precautions reviewed f/u in office in 1 week for BP check (2) Anemia: Code(s): D64.9 - Anemia, unspecified Status: Acute Assessment and Plan: continue iron supplements BID (3) Preeclampsia: Code(s): O14.90 - Unspecified pre-eclampsia, unspecified trimester Status: Acute Assessment and Plan: asymptomatic doing well BP WNL f/u in office in 1 week for BP check Time Spent With Patient Time: Total time spent is greater than 50% in coordination of care (as documented) at patient's floor/unit and/or counseling patient: Exam Const: General: cooperative, healthy appearing, comfortable and no acute distress GI: Inspection: non-distended GI Palp: Yes Soft to palpation and No Tenderness to palpation present (GI) Other: fundus firm below umbilicus Extrem: Right lower extremity: no edema Left lower extremity: no edema Other: no calf tenderness
--- NOTE | 2021-02-23 09:21 | PM.OBDSVD ---
DS: Admitting Diagnosis Admitting Diagnosis Admitting Diagnosis: Preeclampsia OB - DS: Summary OB Procedures : None OB Procedures Intrapartum: Spontaneous Vag Delivery OB Procedures: : None Time Spent with Patient Time attestation: Total time spent providing and/or coordinating discharge services: DS: Data Data Completed and Pending Pending studies at discharge: Pending at discharge 02/21/21 17:08 Surgical [PTH] Routine Discharge Plan Discharge Attending physician on discharge: Arelis Jimenez Discharging Clinician: Arelis Jimenez Anticipated Discharge Date/Time: 02/23/21 09:21 Patient Disposition: Home, Self-Care Activity: as tolerated and pelvic rest Diet: regular Discharge Instructions: Call office ([phone]) to schedule a visit/BP check in 1 week. You may take Ibuprofen 600mg every 6 hours as needed for pain. Pain medication may make you constipated. It may be helpful to take an yynv-usi-ntieshx stool softener, such as Colace and/or Senokot, along with the pain medication to help lessen constipation. You are also anemic, low blood count, after delivery. I have sent a prescription to your pharmacy for iron supplements. Take as directed. Please continue to take your blood pressure at home. Notify the office for any SBP (top number) greater than 160 or DBP (bottom number) greater than 110. Call office or go to ED for pain not controlled with medication, headache, chest pain, shortness of breath, fever, chills, persistent nausea or vomiting, severe abdominal pain, heavy vaginal bleeding >2 pads/hour, foul vaginal discharge or odor, or problems with your breasts. Patient Instructions: Antibiotic Form Stand Alone Forms: General Discharge Information Follow-up/Referrals: Arelis Jimenez MD [Physician] - Discharge Medications: New ferrous sulfate 325 mg (65 mg iron) tablet 325 mg PO DAILY Qty: 90 RF: 0 Continued levothyroxine 150 mcg tablet 150 mcg PO DAILY Qty: 90 RF: 1 sertraline 100 mg tablet 100 mg PO DAILY Qty: 90 RF: 1 levothyroxine 25 mcg tablet 25 mcg PO DAILY Qty: 90 RF: 1 Discontinued (DME) blood-glucose meter Kit See Rx Instructions .ROUTE .MEDSUPPLY Qty: 1 RF: 0 (DME) Blood Glucose Test Strip See Rx Instructions .ROUTE .MEDSUPPLY Qty: 100 RF: 0 (DME) lancets 32 gauge misc See Rx Instructions .ROUTE .MEDSUPPLY Qty: 100 RF: 0 Date of admission: 02/20/21 16:57 Primary Care Provider: PHYSICIAN,[facility] [place] Admitting Provider: Arelis Jimenez Attending physician on admission: Arelis Jimenez Condition: Stable
[2021-02-23] MEDS: SERTRALINE HCL 50 MG TABLET 100 MG PO (09:59)
--- NOTE | 2021-02-23 14:18 | PC.NURSE ---
1100 Patient viewed the discharge video Mother & Baby Care, The First Two Weeks . Patient was given the opportunity and encouraged to ask questions. Patient verbalized understanding of information shared and has been given the mother/baby guide for home reference.
[2021-02-25 08:20] VITALS: BP 126/80; PULSE 82; RESP 18; TEMP 36.8; O2SAT 100
== END 2021-02-23 13:12 | disposition home or self-care (01) | DRG 807 ==
LOC: ANHLDR 16:59 → ANHOB2 02-21 18:06
PROVIDERS: Admitting Provider Student in an Organized Health Care Education/Training Program; Visit Provider Student in an Organized Health Care Education/Training Program
DX: O14.94 Unspecified pre-eclampsia, complicating childbirth (principal); Z37.0 Single live birth; Z3A.37 37 weeks gestation of pregnancy; O36.8330 Maternal care for abnormalities of the fetal heart rate or rhythm, third trimester, not applicable or unspecified; O70.0 First degree perineal laceration during delivery; O24.429 Gestational diabetes mellitus in childbirth, unspecified control; O99.344 Other mental disorders complicating childbirth; F41.1 Generalized anxiety disorder; O99.284 Endocrine, nutritional and metabolic diseases complicating childbirth; E03.0 Congenital hypothyroidism with diffuse goiter; O99.02 Anemia complicating childbirth; D64.9 Anemia, unspecified
CPT/HCPCS: 36415; 80053; 82948; 84550; 85014; 85018; 85025; 86592; 86850; 86900; 86901; 88307; 90715; A9270; J2405; J2590; J3010; J7120

== ENCOUNTER 2021-03-27 18:47 | Emergency (ER) | payer BC, SELFPAY ==
[2021-03-27 18:54] VITALS: BP 108/79; PULSE 69; RESP 16; TEMP 36.5; O2SAT 100
--- NOTE | 2021-03-27 19:10 | ED.FEMALEGU ---
HPI - Female Genitourinary General Chief complaint: Urogenital-Female Stated complaint: uti Time Seen by Provider: 03/27/21 19:05 Source: patient, RN notes reviewed and old records reviewed Mode of arrival: ambulatory Limitations: no limitations History of Present Illness HPI Narrative: 30-year-old female who presents to [facility] with complaints of acute urgency for the past 1 to 2 hours with history of UTIs in the past with similar symptoms. Patient is 5 weeks and is presently taking clindamycin for BV diagnosis states has 1 day left of prescription. Patient denies any suprapubic pain or any flank pain, denies any nausea or vomiting or any present fevers, chills or sweats, states that she is nursing at this time. MD elicited complaint: UTI Pertinent past history: other (previous UTI with similar symptoms, BV on last day of clindamycin) Onset (ago): hour(s) (2) Vaginal discharge: none Vaginal bleeding: none Urinary symptoms: Urgency and Frequency Exacerbating factors: none Treatment prior to arrival: none Patient : No Possible : other (post 5 weeks) Related Data Home Medications Medication Instructions Recorded Confirmed prenat.vits,bianka,nbk-[id number] 1 tablet PO DAILY 03/15/21 Allergies Allergy/AdvReac Type Severity Reaction Status Date / Time Sulfa (Sulfonamide Allergy Intermediate Vomiting Verified 03/15/21 11:50 Antibiotics) Review of Systems Review of Systems: Narrative: CONSTITUTIONAL: Denies fever, chills, or sweats. EYES: Denies visual changes, redness, or discharge. ENT: Denies rhinorrhea, congestion, sore throat, or otalgia. CARDIOVASCULAR: Denies chest pain, palpitations, or edema. RESPIRATORY: Denies cough or dyspnea. GASTROINTESTINAL: Denies abdominal pain, nausea, vomiting, or diarrhea. GENITOURINARY positive dysuria and frequency and urgency no hematuria. SKIN: Denies rash or itching. MUSCULOSKELETAL: Denies back pain, joint pain, or myalgia. NEUROLOGIC: Denies headache, numbness, or weakness. PSYCHIATRIC: Positive history anxiety or depression. All systems reviewed & are unremarkable except as noted in HPI and below PMFSH Past Medical History Medical History Congenital hypothyroidism with diffuse goiter Generalized anxiety disorder Gestational diabetes Migraine without aura and without status migrainosus, not intractable Preeclampsia Vaginal delivery Surgical History Surgical History Markle teeth extracted Family History Family History Father Diabetes mellitus Acute myocardial infarction Social History Social History (Updated 03/30/21 @ 12:39 by Kacie Negron NP) Smoking status: Never smoker Alcohol intake: former Substance use: never Living arrangements: with family Gender identity (if verbalized by the patient): Female Spiritual care concerns: No Comments At time of signature, agree with nursing past medical, surgical, social and family history. There is no relevant family history pertinent to the presenting complaint Exam Narrative: Exam Narrative: GENERAL: Well-appearing, well-nourished, and in no acute distress. HEAD: Normocephalic, atraumatic. EYES: PERRLA and EOMI. ENT: Nares clear, no rhinorrhea or epistaxis. Mucous membranes moist. NECK: Supple.no lymphadenopathy CHEST: Clear to auscultation. No respiratory distress.SAO2 100% on room air HEART: Regular rate and rhythm. No murmur heard. Normal peripheral pulses. ABDOMEN: Soft, nontender to palpation nondistended, normal active bowel sounds, no CVA tenderness on exam, no vaginal discharge or itching no noted hematuria EXTREMITIES: Normal range of motion. No edema. SKIN: Warm, dry, no rash. NEURO: No focal deficits. Alert and oriented x3. Course Vital Signs Vital signs: Vital Signs Tempera
== END 2021-03-27 19:20 | disposition home or self-care (01) ==
PROVIDERS: Emergency Provider Registered Nurse; PCP Family Medicine
DX: O86.20 Urinary tract infection following delivery, unspecified (principal)
CPT/HCPCS: 81003; 87077; 87086; 87088; 87186; 99213; G0463

== ENCOUNTER 2023-03-06 09:51 | Outpatient (CLI) | payer BC, SELFPAY ==
[2023-03-06 18:39] LABS: Basophils Percent Auto 0.5 % (0.2-1.2); Eosinophils Absolute Auto 0.3 K/mm3 (0-0.3); Eosinophils Percent Auto 3.1 % (0-4.4); Hematocrit 39.2 % (37.0-47.0); Hemoglobin 12.8 g/dL (12.0-15.0); Immature Granulocyte Absolute 0.03 K/mm3 (0.00-0.031); Immature Granulocyte Percent A 0.4 % (0-0.5); Lymphocytes Absolute Auto 2.56 K/mm3 (0.9-3.2); Lymphocytes Percent Auto 31.9 % (18.3-44.2); Mean Corpuscular HGB Conc 32.7 g/dl (32-36); Mean Corpuscular Hemoglobin 27.9 pg (26-34); Mean Corpuscular Volume 85.4 fl (80-100); Mean Platelet Volume 9.3 fl (7.4-10.4); Monocytes Absolute Auto 0.5 K/mm3 (0.1-0.6); Monocytes Percent Auto 6.6 % (2.6-8.5); Neutrophils Absolute Auto 4.6 K/mm3 (1.3-6.7); Neutrophils Percent Auto 57.5 % (45.5-73.1); Platelet Count Result 380 k/mm3 (150-375); Red Blood Count 4.59 M/mm3 (4.2-5.4); Red Cell Distribution Width 12.8 % (11.5-14.5)
[2023-03-06 18:58] LABS: Hemoglobin A1C 5.1 % (<5.7)
[2023-03-06 19:05] LABS: Alanine Aminotransferase 40 U/L (6-35); Albumin Level 4.5 g/dL (3.5-5.1); Alkaline Phosphatase 95 U/L (38-126); Anion Gap 5 mmol/L (8-16); Aspartate Amino Transferase 39 U/L (14-36); Bilirubin,Total 0.8 mg/dL (0.2-1.3); Blood Urea Nitrogen 9 mg/dL (7-17); Calcium 8.9 mg/dL (8.4-10.2); Carbon Dioxide 31 mmol/L (22-30); Chloride 102 mmol/L (98-107); Cholesterol 224 mg/dL (0-200); Estimated Glomerular Filt Rate > 60; Glucose 75 mg/dL (65-110); HDL Direct 51 mg/dL; Potassium 4.1 mmol/L (3.4-5.0); Sodium 138 mmol/L (137-145); Triglycerides 50 mg/dL (<150)
[2023-03-06 19:16] LABS: LDL Cholesterol Direct 135 mg/dL
[2023-03-07 05:02] LABS: Free T4 Free Thyroxine Reflex 1.14 ng/dL (0.78-2.19)
[2023-03-07 05:46] LABS: Total Triiodothyronine (T3) 1.35 NG/ML (0.97-1.69)
== END 2023-03-06 09:52 | disposition home or self-care (01) ==
LOC: ANHGOSHLAB 09:52
PROVIDERS: PCP Family Medicine; Visit Provider Family Medicine
DX: Z00.00 Encounter for general adult medical examination without abnormal findings (principal); D64.9 Anemia, unspecified; F41.1 Generalized anxiety disorder; E78.5 Hyperlipidemia, unspecified; E03.9 Hypothyroidism, unspecified; E53.8 Deficiency of other specified B group vitamins; E55.9 Vitamin D deficiency, unspecified; R73.9 Hyperglycemia, unspecified
CPT/HCPCS: 36415; 80053; 80061; 82306; 82607; 83036; 84439; 84443; 84480; 85025

== ENCOUNTER 2023-09-25 10:45 | Outpatient (CLI) | payer BC, SELFPAY ==
[2023-09-25 18:47] LABS: Alanine Aminotransferase 20 U/L (6-35); Albumin Level 4.5 g/dL (3.5-5.1); Alkaline Phosphatase 85 U/L (38-126); Anion Gap 6 mmol/L (8-16); Aspartate Amino Transferase 32 U/L (14-36); Bilirubin,Total 0.7 mg/dL (0.2-1.3); Blood Urea Nitrogen 9 mg/dL (7-17); Calcium 9.4 mg/dL (8.4-10.2); Carbon Dioxide 30 mmol/L (22-30); Chloride 102 mmol/L (98-107); Estimated Glomerular Filt Rate > 60; Glucose 83 mg/dL (65-110); Potassium 4.2 mmol/L (3.4-5.0); Sodium 138 mmol/L (137-145)
== END 2023-09-25 10:46 | disposition home or self-care (01) ==
LOC: ANHGOSHLAB 10:47
PROVIDERS: PCP Family Medicine; Visit Provider Family Medicine
DX: E03.9 Hypothyroidism, unspecified (principal); R79.89 Other specified abnormal findings of blood chemistry
CPT/HCPCS: 36415; 80053; 84443

== ENCOUNTER 2024-03-25 10:50 | Outpatient (CLI) | payer BC, SELFPAY ==
[2024-03-25 18:48] LABS: Basophils Percent Auto 0.5 % (0.2-1.2); Eosinophils Absolute Auto 0.2 K/mm3 (0-0.3); Eosinophils Percent Auto 2.9 % (0-4.4); Hematocrit 37.3 % (37.0-47.0); Hemoglobin 12.2 g/dL (12.0-15.0); Immature Granulocyte Absolute 0.03 K/mm3 (0.00-0.031); Immature Granulocyte Percent A 0.4 % (0-0.5); Lymphocytes Absolute Auto 2.67 K/mm3 (0.9-3.2); Mean Corpuscular HGB Conc 32.7 g/dl (32-36); Mean Corpuscular Hemoglobin 27.5 pg (26-34); Mean Platelet Volume 9.1 fl (7.4-10.4); Monocytes Absolute Auto 0.6 K/mm3 (0.1-0.6); Monocytes Percent Auto 7.2 % (2.6-8.5); Neutrophils Absolute Auto 4.8 K/mm3 (1.3-6.7); Platelet Count Result 342 k/mm3 (150-375); Red Blood Count 4.44 M/mm3 (4.2-5.4); Red Cell Distribution Width 13.1 % (11.5-14.5); White Blood Count 8.3 K/mm3 (4.5-10.0)
[2024-03-25 19:40] LABS: Alanine Aminotransferase 29 U/L (6-35); Albumin Level 4.5 g/dL (3.5-5.1); Alkaline Phosphatase 87 U/L (38-126); Anion Gap 5 mmol/L (4-12); Aspartate Amino Transferase 32 U/L (14-36); Bilirubin,Total 0.7 mg/dL (0.2-1.3); Blood Urea Nitrogen 11 mg/dL (7-17); Calcium 9.6 mg/dL (8.4-10.2); Carbon Dioxide 26 mmol/L (22-30); Chloride 107 mmol/L (98-107); Cholesterol 205 mg/dL (0-200); Estimated Glomerular Filt Rate > 60; Glucose 84 mg/dL (65-110); HDL Direct 58 mg/dL; Potassium 4.8 mmol/L (3.4-5.0); Sodium 138 mmol/L (137-145); Triglycerides 64 mg/dL (<150)
[2024-03-25 19:51] LABS: LDL Cholesterol Direct 113 mg/dL
[2024-03-25 20:46] LABS: Hemoglobin A1C 4.8 % (<5.7)
[2024-03-29 10:18] LABS: Vitamin D 1,25 (OH)2 Total 49 pg/mL (18-72); Vitamin D2 1,25 (OH)2 <8 pg/mL; Vitamin D3 1,25 (OH)2 49 pg/mL
== END 2024-03-25 10:51 | disposition home or self-care (01) ==
LOC: ANHGOSHLAB 10:52
PROVIDERS: PCP Family Medicine; Visit Provider Nurse Practitioner Family
DX: Z00.00 Encounter for general adult medical examination without abnormal findings (principal); D64.9 Anemia, unspecified; E03.0 Congenital hypothyroidism with diffuse goiter; E03.9 Hypothyroidism, unspecified; F41.1 Generalized anxiety disorder; R79.89 Other specified abnormal findings of blood chemistry; E78.5 Hyperlipidemia, unspecified; R73.03 Prediabetes; Z13.29 Encounter for screening for other suspected endocrine disorder
CPT/HCPCS: 36415; 80053; 80061; 82652; 83036; 84443; 85025

== ENCOUNTER 2024-09-30 10:55 | Outpatient (CLI) | payer BC, SELFPAY ==
[2024-09-30 18:57] LABS: Basophils Percent Auto 0.5 % (0.2-1.2); Eosinophils Absolute Auto 0.2 K/mm3 (0-0.3); Eosinophils Percent Auto 2.3 % (0-4.4); Hematocrit 38.3 % (37.0-47.0); Hemoglobin 12.3 g/dL (12.0-15.0); Immature Granulocyte Absolute 0.03 K/mm3 (0.00-0.031); Immature Granulocyte Percent A 0.4 % (0-0.5); Lymphocytes Absolute Auto 2.83 K/mm3 (0.9-3.2); Lymphocytes Percent Auto 33.1 % (18.3-44.2); Mean Corpuscular HGB Conc 32.1 g/dl (32-36); Mean Corpuscular Hemoglobin 27.2 pg (26-34); Mean Corpuscular Volume 84.7 fl (80-100); Mean Platelet Volume 9.2 fl (7.4-10.4); Monocytes Absolute Auto 0.5 K/mm3 (0.1-0.6); Monocytes Percent Auto 6.1 % (2.6-8.5); Neutrophils Absolute Auto 4.9 K/mm3 (1.3-6.7); Neutrophils Percent Auto 57.6 % (45.5-73.1); Platelet Count Result 342 k/mm3 (150-375); Red Blood Count 4.52 M/mm3 (4.2-5.4); Red Cell Distribution Width 12.9 % (11.5-14.5); White Blood Count 8.6 K/mm3 (4.5-10.0)
[2024-09-30 19:08] LABS: Alanine Aminotransferase 52 U/L (6-35); Albumin Level 4.5 g/dL (3.5-5.1); Alkaline Phosphatase 106 U/L (38-126); Anion Gap 7 mmol/L (4-12); Aspartate Amino Transferase 64 U/L (14-36); Bilirubin,Total 0.7 mg/dL (0.2-1.3); Blood Urea Nitrogen 13 mg/dL (7-17); Calcium 9.3 mg/dL (8.4-10.2); Carbon Dioxide 27 mmol/L (22-30); Chloride 103 mmol/L (98-107); Cholesterol 201 mg/dL (0-200); Estimated Glomerular Filt Rate > 60; Glucose 86 mg/dL (65-110); HDL Direct 69 mg/dL; Potassium 4.5 mmol/L (3.4-5.0); Sodium 137 mmol/L (137-145); Triglycerides 38 mg/dL (<150)
[2024-09-30 19:26] LABS: Vitamin D 25 Hydroxy 15.5 ng/mL
[2024-09-30 19:28] LABS: LDL Cholesterol Direct 94 mg/dL
== END 2024-09-30 10:56 | disposition home or self-care (01) ==
LOC: ANHGOSHLAB 10:56
PROVIDERS: PCP Family Medicine; Visit Provider Nurse Practitioner Family
DX: E78.5 Hyperlipidemia, unspecified (principal); E03.0 Congenital hypothyroidism with diffuse goiter; E55.9 Vitamin D deficiency, unspecified; F41.1 Generalized anxiety disorder; E03.9 Hypothyroidism, unspecified
CPT/HCPCS: 36415; 80053; 80061; 82306; 84439; 84443; 85025

== ENCOUNTER 2025-03-27 12:41 | Outpatient (CLI) | payer BC, SELFPAY ==
--- OUTSIDE RECORDS SUMMARY | 2025-03-27 12:45 | XMS_ITS | Encounter Summary ---
Author Organization [facility] Address [address] [place] [address] Care Team Providers Care Early Childhood Aide Classroom Name Role Phone Génesis Valdez MD Primary Care Pro vider Encounter Details Date Type Department Care Team (Late st Contact Info) Description 12/02/2001 Outpatient Historical [facility] Pediatrics Cristobal 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
--- OUTSIDE RECORDS SUMMARY | 2025-03-27 12:45 | XMS_ITS | Clinical Summary ---
Author Organization [facility] Address [address] [place] [address] Care Team Providers Care Sports Health Club Membership Advisors Name Role Phone Génesis Valdez MD Primary Care Pro vider Allergies No known active allergies Medications No known medications Active Problems Problem Noted Date Diagnosed Date Abscess 04/30/2009 Hypothyroidism 02/07/2009 Immunizations Immunization Administration Dates Next Due (ADACEL/BOOSTRIX)(10 YR UP) TDAP VACCINE, 0.5ML, IM 06/24/2007 (INFANRIX)(6 WKS-6 YRS) DIPT HERIA, TETANUS TOXOIDS, AND ACCELLULAR PERTUSSIS VACCINE (DTAP), 0.5 ML IM 04/22/1997,03/18/1996,04/10/1992,03/26,02/24/1991,01/22/1991 (IPOL)(6 WKS AND UP) POLIOVI RANDAL VACCINE, INACTIVATED (IPV), 3 DOSE, SUBCUT OR IM 06/28/1991 (M-M-R II/PRIORIX)(12 MO UP) MEASLES, MUMPS AND RUBELLA VIRUS VACCINE, 0.5 ML IM/SUBCUT 04/10/1992,07/28/1991 (TDVAX)(7 YRS UP) TETANUS AN D DIPHTHERIA TOXOIDS, ADSORBED (2 LF OF TETANUS TOXOID AND 2 LF OF DIPHTHERIA TOXOID), 0.5ML (PF), IM 04/22/2007 HIB, Unspecified Formulation 02/02/1992 Hepatitis A Vaccine 06/24/2007 Hepatitis B Vaccine 08/11/1995,07/15/1995,1994 Meningococcal ACWY Vaccine, Unspecified Formulation 06/24/2007 Poliovirus Vaccine Live Oral 04/28/1991, 03/26/1991,02/24/1991,01/22 Skin Test TB 07/07/2002 Social History Tobacco Use Types Packs/Day Years Used Date Smoking Tobacco: Never Assessed Comments No Sex and Gender Information Value Date Recorded Sex Assigned at Not on file 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 Gender Identity Not on file Sexual Orientation Not on file Last Filed Vital Signs Vital Sign Reading Time Taken Comments Blood Pressure - - Pulse 76 04/30/2009 10:26 AM CDT Temperature 36.7 C (98 F) 04/30/2009 10:26 AM CDT Respiratory Rate 20 04/30/2009 10:26 AM CDT Oxygen Saturation - - Inhaled Oxygen Concentration - - Weight 70.3 kg (155 lb) 04/30/2009 10:26 AM CDT Height - - Body Mass Index - - Plan of Treatment Health Maintenance Due Date Last Done Comments HEPATITIS B VACCINES (4 of 4 - 4-dose series) 09/29/1995 08/11/1995, 07/15/1995, 06/09/1995 HPV/Cotest (21-29) 2011 DTAP/TDAP/TD VACCINES (7 - Td or Tdap) 06/24/2017 06/24/2007, 04/22/2007, 04/22/1997, Additional history exists CERVICAL CANCER SCREENING 2020 HPV/Cotest (30-65) 2020 PAP SMEAR 2020 INFLUENZA VACCINE (#1) 2024 HPV VACCINES Aged Out No longer eligi ble based on patient's age to complete this topic Insurance [facility] BLUE PREFERRED Care Teams Sports Health Club Membership Advisors Relationship Specialty Start Date End Date Génesis Valdez MD PCP - General Family Practice 09/05/20
--- OUTSIDE RECORDS SUMMARY | 2025-03-27 12:45 | XMS_ITS | Encounter Summary ---
Author Organization [facility] Address [address] [place] [address] Care Team Providers Care Roller Coaster Engineer Name Role Phone Génesis Valdez MD Primary Care Pro vider Encounter Details Date Type Department Care Team (Late st Contact Info) Description 05/11/2002 Outpatient Historical [facility] Pediatrics Cristobal 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
--- OUTSIDE RECORDS SUMMARY | 2025-03-27 12:45 | XMS_ITS | Clinical Summary ---
Author Organization [facility] Address [address] [place] [address] Care Team Providers Care Flight Attendant Ramp Name Role Phone Tobias Cervantes MD Primary Care Provider Source Comments [facility],non-owned Affiliates and Associated Physician Practices is amultiple site organization consisting of ambulatory clinics and hospital sitesin [place], [place], [place] and [place]. This disclosure is being madepursuant to the Care Everywhere program and may not contain all information available regarding this patient. Last updated 18.[facility] Allergies Active Allergy Reactions Criticality Noted Date Comments Sulfa Drugs 08/28/2013 Medications * Be aware that medications may not be up to date on this document. Alwaysverify current medications with the patient. sertraline (ZOLOFT) 100 MG tablet Take 100 mg by mouth daily. Active levothyroxine (SYNTHROID) 100 MCG tablet Take 100 mcg by mouth daily before breakfast. Active prochlorperazine (COMPAZINE) 5 MG tablet Take 1 Tab by mouth every 8 hours as needed for Nausea/Vomi ting. 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 (08/09/2015): Social History Tobacco Use Types Packs/Day Years Used Date Smoking Tobacco: Never Tobacco Cessation:Counseling Given: Yes Alcohol Use Standard Drinks/Week Comments No 0 (1 standard drink = 0.6 oz pur e alcohol) Comments No Sex and Gender Information Value Date Recorded Sex Assigned at Not on file Legal Sex Female 7:14 AM MICA SIZER Gender Identity Not on file Sexual Orientation Not on file Last Filed Vital Signs Vital Sign Reading Time Taken Comments Blood Pressure 108/71 08/30/2013 9:48 AM CDT Pulse 69 08/30/2013 9:48 AM CDT Temperature 37.1 C (98.8 F) 08/30/2013 9:48 AM CDT Respiratory Rate 16 08/30/2013 9:48 AM CDT Oxygen Saturation 95% 08/30/2013 9:48 AM CDT Inhaled Oxygen Concentration - - Weight 65.8 kg (145 lb) 08/28/2013 8:19 PM CDT Height 170.2 cm (5' 7 ) 08/28/2013 8:19 PM CDT Body Mass Index 22.71 08/28/2013 8:19 PM CDT Plan of Treatment Health Maintenance Due Date Last Done Comments HIV SCREENING 2005 HEPATITIS C SCREENING 11/05/2008 DTAP/TDAP/TD VACCINES (1 - Tdap) 2009 HEPATITIS B VACCINE (1 of 3 - 19+ 3-dose series) 2009 COVID-19 VACCINE ( - 2023-2 5 season) 2024 DEPRESSION SCREENING 11/09/2024 INFLUENZA VACCINE (Season Ended) 2025 ZOSTER VACCINE (1 of 2) 2040 HIB VACCINE Aged Out No longer eligi ble based on patient's age to complete this topic HPV VACCINE Aged Out No longer eligi ble based on patient's age to complete this topic MENINGOCOCCAL (Group B) VACC INE SHARED DECISION-MAKING Aged Out No longer eligibl e based on patient's age to complete this topic MENINGOCOCCAL GROUPS A/C/Y/W VACCINE Aged Out No longer eligible b ased on patient's age to complete this topic PNEUMOCOCCAL VACCINE Aged Out No long er eligible based on patient's age to complete this topic Insurance [facility] Advance Directives * FULL RESUSCITATION (Latest Code Status on File) Date Activated Date Inactivated Comments 08/28/2013 10:51 PM 08/30/2013 1:46 PM * FULL RESUSCITATION Date Activated Date Inactivated Comments 08/28/2013 10:44 PM 08/28/2013 10:51 PM Care Teams Flight Attendant Ramp Relationship Specialty Start Date End Date Tobias Cervantes MD [address] [place] [address] PCP - General 04/15/21
--- OUTSIDE RECORDS SUMMARY | 2025-03-27 12:46 | XMS_ITS | Encounter Summary ---
Author Organization [employer] [facility] Address [address] [place] [address] Care Team Providers Care Green Coffee Blender Name Role Phone Génesis Valdez MD Primary Care Pro vider Encounter Details Date Type Department Care Team (Late st Contact Info) Description 01/28/2004 Outpatient Historical [facility] Sabrina Villa MD [address] [place] [phone] Er, Authorized P NO ADDRESS ON FILE DEPRESSIVE DISORDER NEC (Primary Dx) Social History Tobacco Use Types Packs/Day Years Used Date Smoking Tobacco: Never Assessed Comments Unknown Sex and Gender Information Value Date Recorded Sex Assigned at Not on file Legal Sex Female 2:58 AM 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
--- OUTSIDE RECORDS SUMMARY | 2025-03-27 12:46 | XMS_ITS | Encounter Summary ---
Author Organization [facility] Address [address] [place] [address] Care Team Providers Care Larry Operator Name Role Phone Génesis Valdez MD Primary Care Pro vider Encounter Details Date Type Department Care Team (Late st Contact Info) Description 05/06/2002 Outpatient Historical [facility]s 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
--- OUTSIDE RECORDS SUMMARY | 2025-03-27 12:46 | XMS_ITS | Encounter Summary ---
Author Organization [facility] Address [address] [place] [address] Care Team Providers Care Electrical Maintenance Technician Name Role Phone Génesis Valdez MD Primary Care Pro vider Encounter Details Date Type Department Care Team (Late st Contact Info) Description 06/02/2002 Outpatient Historical [facility] 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
--- OUTSIDE RECORDS SUMMARY | 2025-03-27 12:46 | XMS_ITS | Encounter Summary ---
Author Organization [facility] Address [address] [place] [address] Care Team Providers Care Sales Team Recruiter Name Role Phone Génesis Valdez MD Primary Care Pro vider Encounter Details Date Type Department Care Team (Late st Contact Info) Description 01/19/2002 Outpatient Historical [facility] Pediatric[facility] Cristobal 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
--- OUTSIDE RECORDS SUMMARY | 2025-03-27 12:46 | XMS_ITS | Encounter Summary ---
Author Organization [facility] Address [address] [place] [address] Care Team Providers Care Zanjero Name Role Phone Génesis Valdez MD Primary Care Pro vider Encounter Details Date Type Department Care Team (Late st Contact Info) Description 06/16/2007 Outpatient Historical [facility] Pediatrics Cristobal [address] [place] [phone] Gael Camara MD [address] [place], [place] [phone] Social History Tobacco Use Types Packs/Day Years Used Date Smoking Tobacco: Never Assessed Comments Unknown Sex and Gender Information Value Date Recorded Sex Assigned at Not on file Legal Sex Female 2:58 AM HIM CODER Gender Identity Not on file Sexual Orientation Not on file documented as of this encounter Plan of Treatment Not on file documented as of this encounter Visit Diagnoses Not on filedocumented in this encounter Care Teams Zanjero Relationship Specialty Start Date End Date Génesis Valdez MD PCP - General Family Practice 09/05/20 documented as of this encounter
--- OUTSIDE RECORDS SUMMARY | 2025-03-27 12:46 | XMS_ITS | Encounter Summary ---
Author Organization [facility] Address [address] [place] [address] Care Team Providers Care Crop Farmers Name Role Phone Génesis Valdez MD Primary Care Pro vider Encounter Details Date Type Department Care Team (Late st Contact Info) Description 02/18/2006 Outpatient Historical [facility] Pediatrics [place] 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
--- OUTSIDE RECORDS SUMMARY | 2025-03-27 12:46 | XMS_ITS | Encounter Summary ---
Author Organization [facility] Address [address] [place] [address] Care Team Providers Care Glass Decorator Name Role Phone Génesis Valdez MD Primary Care Pro vider Encounter Details Date Type Department Care Team (Late st Contact Info) Description 06/24/2007 Outpatient Historical [facility] Pediatrics [place] [address] [place] [phone] Gael Camara MD [address] [place], [place] [id number] Social History Tobacco Use Types Packs/Day Years Used Date Smoking Tobacco: Never Assessed Comments Unknown Sex and Gender Information Value Date Recorded Sex Assigned at Not on file Legal Sex Female 2:58 AM OUTPATIENT INTERVIEWING CLERK Gender Identity Not on file Sexual Orientation Not on file documented as of this encounter Plan of Treatment Not on file documented as of this encounter Visit Diagnoses Not on filedocumented in this encounter Care Teams Glass Decorator Relationship Specialty Start Date End Date Génesis Valdez MD PCP - General Family Practice 09/05/20 documented as of this encounter
--- OUTSIDE RECORDS SUMMARY | 2025-03-27 12:46 | XMS_ITS | Encounter Summary ---
Author Organization [facility] Address [address] [place] [address] Care Team Providers Care Cash Poster Name Role Phone Génesis Valdez MD Primary Care Pro vider Encounter Details Date Type Department Care Team (Late st Contact Info) Description 01/19/2002 Outpatient Historical [facility] Pediatric[facility] [place] [address] [place] [phone] Gael Camara MD [address] [place], [place] [id number] Social History Tobacco Use Types Packs/Day Years Used Date Smoking Tobacco: Never Assessed Comments Unknown Sex and Gender Information Value Date Recorded Sex Assigned at Not on file Legal Sex Female 2:58 AM WEBSPHERE ADMINISTRATOR Gender Identity Not on file Sexual Orientation Not on file documented as of this encounter Plan of Treatment Not on file documented as of this encounter Visit Diagnoses Not on filedocumented in this encounter Care Teams Cash Poster Relationship Specialty Start Date End Date Génesis Valdez MD PCP - General Family Practice 09/05/20 documented as of this encounter
--- OUTSIDE RECORDS SUMMARY | 2025-03-27 12:46 | XMS_ITS | Encounter Summary ---
Author Organization [facility] Address [address] [place] [address] Care Team Providers Care Marketing Technology Specialist Name Role Phone Génesis Valdez MD Primary Care Pro vider Encounter Details Date Type Department Care Team (Late st Contact Info) Description 08/02/2001 Outpatient Historical [facility] Pediatrics [address] [place] [address] Kellee Zhou Social History Tobacco Use Types Packs/Day Years Used Date Smoking Tobacco: Never Assessed Comments Unknown Sex and Gender Information Value Date Recorded Sex Assigned at Not on file Legal Sex Female 2:58 AM PHYSICIAN SCIENTIST Gender Identity Not on file Sexual Orientation Not on file documented as of this encounter Plan of Treatment Not on file documented as of this encounter Visit Diagnoses Not on filedocumented in this encounter Care Teams Marketing Technology Specialist Relationship Specialty Start Date End Date Génesis Valdez MD PCP - General Family Practice 09/05/20 documented as of this encounter
--- OUTSIDE RECORDS SUMMARY | 2025-03-27 12:46 | XMS_ITS | Encounter Summary ---
Author Organization [facility] Address [address] [place] [address] Care Team Providers Care Eeler Name Role Phone Génseis Valdez MD Primary Care Pro vider Encounter Details Date Type Department Care Team (Late st Contact Info) Description 08/09/2003 Outpatient Historical [facility] Pediatrics [place] 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
--- OUTSIDE RECORDS SUMMARY | 2025-03-27 12:46 | XMS_ITS | Clinical Summary ---
Author Organization [facility] Address [address] [place] [address] Care Team Providers Care Change Management Administrator Name Role Phone Rob Reyes MD Primary Care Provider [phone] Allergies Active Allergy Reactions Criticality Noted Date Comments Pineapple Sulfa (Sulfonamide Antibiotics) Swelling Medium 11/10 Swelling Medications levonorgestrel (MIRENA) 20 mcg/24 hr (5 years) IUD Placed in 2014 1 Device 0 04/02/2017 Active levothyroxine (SYNTHROID) 137 mcg tablet take 1 tablet by oral route every day 0 0 04/02/2017 Active sertraline (ZOLOFT) 100 mg tablet take 2 (200MG) by oral route every day 0 02/10/2013 Active Active Problems Problem Noted Date Diagnosed Date Anxiety disorder 01/11/2013 Recurrent major depression in complete remission 08/09/2012 Hypothyroidism 02/07/2009 Overview (11/27/2021): Hypothyroid Surgical History Surgery Date Site/Laterality Comments OTHER SURGICAL HISTORY Staph infection: abscess removed Medical History Medical History Date Comments Hx Other Medical 2009 Staph infection ; Comments: Arm Hx Other Medical Hypothyroidism, primary Family History Medical History Relation Name Comments Diabetes Father 2 Diabetes mellit ; 04/02/2017 - Father from a heart attack in 2017 Other Father 2 of [place] at a ge 57; Cause of : of [place] at age 57 Other Other 1 No family histo ry of Cancer, breast; Other Other 2 No family histo ry of Cancer, colon; Other Other 3 No family histo ry of Ovarian cancer; Relation Name Status Comments Father 1 Father 2 Other 1 Other 2 Other 3 Social History Tobacco Use Types Packs/Day Years Used Date Smoking Tobacco: Never Alcohol Use Standard Drinks/Week Comments Yes 0 (1 standard drink = 0.6 oz pur e alcohol) Comments Unknown Sex and Gender Information Value Date Recorded Sex Assigned at Not on file Legal Sex Female 2:50 AM GAS DISPENSER Gender Identity Not on file Sexual Orientation Straight 11/26/2021 4: 57 PM GAS DISPENSER Obstetrics History Last Filed Vital Signs Vital Sign Reading Time Taken Comments Blood Pressure 118/66 04/02/2017 2:12 PM CDT Pulse 96 12/02/2016 3:33 PM GAS DISPENSER Temperature 37.5 C (99.5 F) 12/02/2016 3:33 PM GAS DISPENSER Respiratory Rate - - Oxygen Saturation 98% 12/02/2016 3:33 PM GAS DISPENSER Inhaled Oxygen Concentration - - Weight 75.1 kg (165 lb 8 oz) 04/02/2017 2:12 PM CDT Height 167.6 cm (5' 6 ) 04/02/2017 2:12 PM CDT Body Mass Index 26.71 04/02/2017 2:12 PM CDT Plan of Treatment Not on file Insurance Care Teams Change Management Administrator Relationship Specialty Start Date End Date Rob Reyes MD [address] [place] [address] PCP - General 02/10/13
--- OUTSIDE RECORDS SUMMARY | 2025-03-27 12:46 | XMS_ITS | Encounter Summary ---
Author Organization [facility] Address [address] [place] [address] Care Team Providers Care Translator Name Role Phone Génesis Valdez MD Primary Care Pro vider Encounter Details Date Type Department Care Team (Late st Contact Info) Description 12/22/2002 Outpatient Historical [facility] Pediatric[facility] Cristobal 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
--- OUTSIDE RECORDS SUMMARY | 2025-03-27 12:46 | XMS_ITS | Encounter Summary ---
Author Organization [facility] Address [address] [place] [address] Care Team Providers Care Assembler Unit Name Role Phone Génesis Valdez MD Primary Care Pro vider Encounter Details Date Type Department Care Team (Late st Contact Info) Description 04/27/2003 Outpatient Historical [facility] Pediatrics [place] 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
--- OUTSIDE RECORDS SUMMARY | 2025-03-27 12:46 | XMS_ITS | Encounter Summary ---
Author Organization [facility] Address [address] [place] [address] Care Team Providers Care Curtain Feller Blindstitch Name Role Phone Génesis Valdez MD Primary Care Pro vider Encounter Details Date Type Department Care Team (Latest Contact Info) Description 01/30/2004 Outpatient Historical [facility] [place] [address] [place] [address] BIPOLAR AFFECTIVE NOS (CMS/HCC) (Primary Dx) Social History Tobacco Use Types Packs/Day Years Used Date Smoking Tobacco: Never Assessed Comments Unknown Sex and Gender Information Value Date Recorded Sex Assigned at Not on file Legal Sex Female 2:58 AM CLINICAL NURSING INSTRUCTOR Gender Identity Not on file Sexual Orientation Not on file documented as of this encounter Plan of Treatment Not on file documented as of this encounter Visit Diagnoses Diagnosis Bipolar I disorder, most recent episode (or current) unspecified (CMS/HCC)- Primary Bipolar I disorder, most recent episode (or current) unspecified documented in this encounter Care Teams Curtain Feller Blindstitch Relationship Specialty Start Date End Date Génesis Valdez MD PCP - General Family Practice 09/05/20 documented as of this encounter
--- OUTSIDE RECORDS SUMMARY | 2025-03-27 12:46 | XMS_ITS | Encounter Summary ---
Author Organization [facility] Address [address] [place] [address] Care Team Providers Care Sharebroker Name Role Phone Génesis Valdez MD Primary Care Pro vider Encounter Details Date Type Department Care Team (Late st Contact Info) Description 10/26/2003 Outpatient Historical [facility] Pediatrics 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
--- OUTSIDE RECORDS SUMMARY | 2025-03-27 12:46 | XMS_ITS | Encounter Summary ---
Author Organization [facility] Address [address] [place] [address] Care Team Providers Care Division Manager Name Role Phone Génesis Valdez MD Primary Care Pro vider Encounter Details Date Type Department Care Team (Late st Contact Info) Description 03/28/2004 Outpatient Historical [facility] Pediatrics [place] [address] [place] [phone] Gael Camara MD [address] [place], [place] [phone] Social History Tobacco Use Types Packs/Day Years Used Date Smoking Tobacco: Never Assessed Comments Unknown Sex and Gender Information Value Date Recorded Sex Assigned at Not on file Legal Sex Female 2:58 AM STEAM BLOCKER Gender Identity Not on file Sexual Orientation Not on file documented as of this encounter Plan of Treatment Not on file documented as of this encounter Visit Diagnoses Not on filedocumented in this encounter Care Teams Division Manager Relationship Specialty Start Date End Date Génesis Valdez MD PCP - General Family Practice 09/05/20 documented as of this encounter
--- OUTSIDE RECORDS SUMMARY | 2025-03-27 12:46 | XMS_ITS | Encounter Summary ---
Author Organization [facility] Address [address] [place] [address] Care Team Providers Care Tool Grinder Name Role Phone Génesis Valdez MD Primary Care Pro vider Encounter Details Date Type Department Care Team (Late st Contact Info) Description 07/07/2002 Outpatient Historical [facility] Pediatrics [address] [place] [address] Kellee Zhou Social History Tobacco Use Types Packs/Day Years Used Date Smoking Tobacco: Never Assessed Comments Unknown Sex and Gender Information Value Date Recorded Sex Assigned at Not on file Legal Sex Female 2:58 AM ASSOCIATE PROFESSOR OF [employer]URCH MUSIC Gender Identity Not on file Sexual Orientation Not on file documented as of this encounter Plan of Treatment Not on file documented as of this encounter Visit Diagnoses Not on filedocumented in this encounter Care Teams Tool Grinder Relationship Specialty Start Date End Date Génesis Valdez MD PCP - General Family Practice 09/05/20 documented as of this encounter
--- OUTSIDE RECORDS SUMMARY | 2025-03-27 12:46 | XMS_ITS | Referral Summary ---
Author Organization [facility] Address [address] [place] [address] Care Team Providers Care Software Quality Manager Name Role Phone Rob Reyes MD Primary Care Provider [phone] Allergies Active Allergy Reactions Criticality Noted Date [...] remission 08/09/2012 Hypothyroidism 02/07/2009 Overview (11/27/2021): Hypothyroid Social History Tobacco Use Types Packs/Day Years Used Date Smoking Tobacco: Never Alcohol Use Standard Drinks/Week Comments Yes 0 (1 standard drink = 0.6 oz pur e alcohol) Comments Unknown Sex and Gender Information Value Date Recorded Sex Assigned at Not on file Legal Sex Female 2:50 AM SALES DEPARTMENT SUPERVISOR Gender Identity Not on file Sexual Orientation Straight 11/26/2021 4: 57 PM SALES DEPARTMENT SUPERVISOR Last Filed Vital Signs Vital Sign Reading Time Taken Comments Blood Pressure 118/66 04/02/2017 2:12 PM CDT Pulse 96 12/02/2016 3:33 PM SALES DEPARTMENT SUPERVISOR Temperature 37.5 C (99.5 F) 12/02/2016 3:33 PM SALES DEPARTMENT SUPERVISOR Respiratory Rate - - Oxygen Saturation 98% 12/02/2016 3:33 PM SALES DEPARTMENT SUPERVISOR Inhaled Oxygen Concentration - - Weight 75.1 kg (165 lb 8 oz) 04/02/2017 2:12 PM CDT Height 167.6 cm (5' 6 ) 04/02/2017 2:12 PM CDT Body Mass Index 26.71 04/02/2017 2:12 PM CDT Plan of Treatment Not on file Insurance [employer] Care Teams Software Quality Manager Relationship Specialty Start Date End Date Rob Reyes MD [address] [place] [address] PCP - General 02/10/13
--- OUTSIDE RECORDS SUMMARY | 2025-03-27 12:46 | XMS_ITS | Encounter Summary ---
Author Organization [facility] Address [address] [place] [address] Care Team Providers Care Manager Front Office Name Role Phone Génesis Valdez MD Primary Care Pro vider Encounter Details Date Type Department Care Team (Late st Contact Info) Description 01/15/2006 Outpatient Historical [facility] Pediatrics [place] 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
[2025-03-27 20:11] LABS: Basophils Percent Auto 0.4 % (0.2-1.2); Eosinophils Absolute Auto 0.3 K/mm3 (0-0.3); Eosinophils Percent Auto 3.2 % (0-4.4); Hematocrit 43.1 % (37.0-47.0); Hemoglobin 13.2 g/dL (12.0-15.0); Immature Granulocyte Absolute 0.04 K/mm3 (0.00-0.031); Immature Granulocyte Percent A 0.5 % (0-0.5); Lymphocytes Absolute Auto 3.13 K/mm3 (0.9-3.2); Lymphocytes Percent Auto 37.1 % (18.3-44.2); Mean Corpuscular HGB Conc 30.6 g/dl (32-36); Mean Corpuscular Hemoglobin 26.8 pg (26-34); Mean Corpuscular Volume 87.6 fl (80-100); Monocytes Absolute Auto 0.6 K/mm3 (0.1-0.6); Monocytes Percent Auto 6.5 % (2.6-8.5); Neutrophils Absolute Auto 4.4 K/mm3 (1.3-6.7); Neutrophils Percent Auto 52.3 % (45.5-73.1); Platelet Count Result 336 k/mm3 (150-375); Red Blood Count 4.92 M/mm3 (4.2-5.4); Red Cell Distribution Width 12.7 % (11.5-14.5); White Blood Count 8.4 K/mm3 (4.5-10.0)
[2025-03-27 21:30] LABS: Vitamin D 25 Hydroxy < 12.8 ng/mL
[2025-03-27 21:53] LABS: Free T4 Free Thyroxine Reflex 0.89 ng/dL (0.78-2.19)
[2025-03-27 23:26] LABS: Alanine Aminotransferase 53 U/L (6-35); Albumin Level 4.7 g/dL (3.5-5.1); Alkaline Phosphatase 109 U/L (38-126); Anion Gap 8 mmol/L (4-12); Aspartate Amino Transferase 54 U/L (14-36); Bilirubin,Total 0.8 mg/dL (0.2-1.3); Blood Urea Nitrogen 11 mg/dL (7-17); Calcium 9.4 mg/dL (8.4-10.2); Carbon Dioxide 27 mmol/L (22-30); Chloride 103 mmol/L (98-107); Cholesterol 228 mg/dL (0-200); Estimated Glomerular Filt Rate > 60; Glucose 79 mg/dL (65-110); HDL Direct 54 mg/dL; Potassium 4.6 mmol/L (3.4-5.0); Sodium 138 mmol/L (137-145); Triglycerides 99 mg/dL (<150)
[2025-03-27 23:37] LABS: LDL Cholesterol Direct 116 mg/dL
[2025-03-28 01:01] LABS: Hemoglobin A1C 5.1 % (<5.7)
== END 2025-03-27 12:42 | disposition home or self-care (01) ==
LOC: ANHGOSHLAB 12:42
PROVIDERS: PCP Family Medicine; Visit Provider Family Medicine
DX: Z00.00 Encounter for general adult medical examination without abnormal findings (principal); E78.5 Hyperlipidemia, unspecified; E03.9 Hypothyroidism, unspecified; R73.9 Hyperglycemia, unspecified; E55.9 Vitamin D deficiency, unspecified; E53.8 Deficiency of other specified B group vitamins
CPT/HCPCS: 36415; 80053; 80061; 82306; 82607; 83036; 84439; 84443; 84480; 85025

== ENCOUNTER 2025-09-29 12:44 | Outpatient (CLI) | payer BC, SELFPAY ==
--- OUTSIDE RECORDS SUMMARY | 2025-09-29 12:47 | XMS_ITS | Encounter Summary ---
Author Organization [facility] Address [address] [place] [address] Care Team Providers Care Senior Engineering Specialist Name Role Phone Génesis Valdez MD Primary Care Pro vider Encounter Details Date Type Department Care Team (Late st Contact Info) Description 12/02/2001 Outpatient Historical [facility] Pediatrics [place] [address] [place] [phone] Gael Camara MD [address] [place], [place] [phone] Social History Tobacco Use Types Packs/Day Years Used Date Smoking Tobacco: Never Assessed Comments Unknown Sex and Gender Information Value Date Recorded Sex Assigned at Not on file Legal Sex Female 2:58 AM COOK SUPERVISOR Gender Identity Not on file Sexual Orientation Not on file documented as of this encounter Plan of Treatment Not on file documented as of this encounter Visit Diagnoses Not on filedocumented in this encounter Care Teams Senior Engineering Specialist Relationship Specialty Start Date End Date Génesis Valdez MD PCP - General Family Practice 09/05/20 documented as of this encounter
--- OUTSIDE RECORDS SUMMARY | 2025-09-29 12:47 | XMS_ITS | Encounter Summary ---
Author Organization [facility] Address [address] [place] [address] Care Team Providers Care Utilization Review Specialist Name Role Phone Génesis Valdez MD Primary Care Pro vider Encounter Details Date Type Department Care Team (Latest Contact Info) Description 04/30/2009 Outpatient Historical [facility] [address] Gael Camara MD [address] [place] [address] Cellulitis and Abscess of Unspecified Site Social History Tobacco Use Types Packs/Day Years Used Date Smoking Tobacco: Never Assessed Comments No Sex and Gender Information Value Date Recorded Sex Assigned at Not on file Legal Sex Female 2:58 AM GROUND CREW SUPERVISOR Gender Identity Not on file Sexual Orientation Not on file documented as of this encounter Plan of Treatment Not on file documented as of this encounter Visit Diagnoses Diagnosis Cellulitis and abscess of unspecified site documented in this encounter Care Teams Utilization Review Specialist Relationship Specialty Start Date End Date Génesis Valdez MD PCP - General Family Practice 09/05/20 documented as of this encounter
--- OUTSIDE RECORDS SUMMARY | 2025-09-29 12:47 | XMS_ITS | Encounter Summary ---
Author Organization [facility] Address [address] [place] [address] Care Team Providers Care Testing Projects Administrator Name Role Phone Génesis Valdez MD Primary Care Pro vider Encounter Details Date Type Department Care Team (Late st Contact Info) Description 05/06/2002 Outpatient Historical [facility] Pediatrics [address] [place] [phone] Kandi Daily MD NO ADDRESS ON FILE Social History Tobacco Use Types Packs/Day Years Used Date Smoking Tobacco: Never Assessed Comments Unknown Sex and Gender Information Value Date Recorded Sex Assigned at Not on file Legal Sex Female 2:58 AM MAINTENANCE WELDER Gender Identity Not on file Sexual Orientation Not on file documented as of this encounter Plan of Treatment Not on file documented as of this encounter Visit Diagnoses Not on filedocumented in this encounter Care Teams Testing Projects Administrator Relationship Specialty Start Date End Date Génesis Valdez MD PCP - General Family Practice 09/05/20 documented as of this encounter
--- OUTSIDE RECORDS SUMMARY | 2025-09-29 12:47 | XMS_ITS | Clinical Summary ---
Author Organization [facility] [employer] Address [address] [place] [address] Care Team Providers Care Fitness Center Attendant Name Role Phone Tobias Cervantes MD Primary Care Provider Source Comments [facility] [employer],non-owned Affiliates and Associated Physician Practices is amultiple site organization consisting of ambulatory clinics and hospital sitesin [place], [place], [place] and [place]. This disclosure is being madepursuant to the Care Everywhere program and may not contain all information available regarding this patient. Last updated 18.[facility] [employer] Allergies Active Allergy Reactions Criticality Noted Date [...] on file Legal Sex Female 7:14 AM WASTE WATER PLANT OPERATOR Gender Identity Not on file Sexual [...] 8:19 PM CDT Height 170.2 cm (5' 7) 08/28/2013 8:19 PM CDT Body Mass Index 22.71 08/28/2013 8:19 PM CDT Plan of Treatment Health Maintenance Due Date Last Done Comments HIV SCREENING 2005 HEPATITIS C SCREENING 11/05/2008 DTAP/TDAP/TD VACCINES (1 - Tdap) 2009 HEPATITIS B VACCINE (1 of 3 - 19+ 3-dose series) 2009 PAP SMEAR 2011 HPV VACCINE (1 - 3-dose SCDM series) 2017 Cervical Cancer Screening 2020 PAP with HPV 2020 DEPRESSION SCREENING 11/09/2024 COVID-19 VACCINE (1 - 2024-2 6 season) 2025 INFLUENZA VACCINE (#1) 2025 ZOSTER VACCINE (1 of 2) 2040 [...] patient's age to complete this topic Insurance [facility] Advance Directives * FULL RESUSCITATION (Latest Code Status on File) Date Activated Date Inactivated Comments 08/28/2013 10:51 PM 08/30/2013 1:46 PM * FULL RESUSCITATION Date Activated Date Inactivated Comments 08/28/2013 10:44 PM 08/28/2013 10:51 PM Care Teams Fitness Center Attendant Relationship Specialty Start Date End Date Tobias Cervantes MD [address] [place] [address] PCP - General 04/15/21
--- OUTSIDE RECORDS SUMMARY | 2025-09-29 12:47 | XMS_ITS | Encounter Summary ---
Author Organization [facility] Address [address] [place] [address] Care Team Providers Care Registered Occupational Therapist Name Role Phone Génesis Valdez MD Primary Care Pro vider Encounter Details Date Type Department Care Team (Late st Contact Info) Description 04/27/2003 Outpatient Historical [facility] [place] [address] [place] [phone] Gael Camara MD [address] [place], [place] [id number] Social History Tobacco Use Types Packs/Day Years Used Date Smoking Tobacco: Never Assessed Comments Unknown Sex and Gender Information Value Date Recorded Sex Assigned at Not on file Legal Sex Female 2:58 AM TOWEL DISTRIBUTOR Gender Identity Not on file Sexual Orientation Not on file documented as of this encounter Plan of Treatment Not on file documented as of this encounter Visit Diagnoses Not on filedocumented in this encounter Care Teams Registered Occupational Therapist Relationship Specialty Start Date End Date Génesis Valdez MD PCP - General Family Practice 09/05/20 documented as of this encounter
--- OUTSIDE RECORDS SUMMARY | 2025-09-29 12:47 | XMS_ITS | Encounter Summary ---
Author Organization [facility] Address [address] [place] [address] Care Team Providers Care Lacquer Spray Booth Operator Name Role Phone Génesis Valdez MD Primary Care Pro vider Encounter Details Date Type Department Care Team (Late st Contact Info) Description 01/19/2002 Outpatient Historical [facility] [place] 

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
--- OUTSIDE RECORDS SUMMARY | 2025-09-29 12:47 | XMS_ITS | Encounter Summary ---
Author Organization [facility] Address [address] [place] [address] Care Team Providers Care Colleter Name Role Phone Génesis Valdez MD Primary Care Pro vider Encounter Details Date Type Department Care Team (Late st Contact Info) Description 05/11/2002 Outpatient Historical [facility] [place] 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
--- OUTSIDE RECORDS SUMMARY | 2025-09-29 12:47 | XMS_ITS | Clinical Summary ---
Author Organization [facility] [address] Address [address] [place] [address] Care Team Providers Care Communication Equipment Repairer Name Role Phone Génesis Valdez MD Primary [...] file Legal Sex Female 2:58 AM STEAM CONDITIONING OPERATOR Gender Identity Not on file Sexual [...] HPV/Cotest (21-29) 2011 DTAP/TDAP/TD VACCINES (7 - T d or Tdap) 06/24/2017 06/24/2007, 04/22/2007, 04/22/1997, Additional history exists HPV VACCINES (1 - 3-dose SCD M series) 2017 CERVICAL CANCER SCREENING 2020 HPV/Cotest (30-65) 2020 PAP SMEAR 2020 INFLUENZA VACCINE (#1) 2025 Insurance [facility] BLUE PREFERRED Care Teams Communication Equipment Repairer Relationship Specialty Start Date End Date José Miguel, Génesis Dominic Aguhob, MD PCP - General Family Practice 09/05/20
--- OUTSIDE RECORDS SUMMARY | 2025-09-29 12:47 | XMS_ITS | Encounter Summary ---
Author Organization [facility] Address [address] [place] [address] Care Team Providers Care Relief Docking Master Name Role Phone Génesis Valdez MD Primary Care Pro vider Encounter Details Date Type Department Care Team (Late st Contact Info) Description 07/07/2002 Outpatient Historical [facility] [address] [place] [phone] Kellee Zhou Social History Tobacco Use Types Packs/Day Years Used Date Smoking Tobacco: Never Assessed Comments Unknown Sex and Gender Information Value Date Recorded Sex Assigned at Not on file Legal Sex Female 2:58 AM CREDIT REVIEW OFFICER Gender Identity Not on file Sexual Orientation Not on file documented as of this encounter Plan of Treatment Not on file documented as of this encounter Visit Diagnoses Not on filedocumented in this encounter Care Teams Relief Docking Master Relationship Specialty Start Date End Date Génesis Valdez MD PCP - General Family Practice 09/05/20 documented as of this encounter
--- OUTSIDE RECORDS SUMMARY | 2025-09-29 12:47 | XMS_ITS | Encounter Summary ---
Author Organization [facility] Address [address] [place] [address] Care Team Providers Care Office Communication Professor Name Role Phone Génesis Valdez MD Primary Care Pro vider Encounter Details Date Type Department Care Team (Late st Contact Info) Description 01/19/2002 Outpatient Historical [facility] [place] [address] [place] [phone] Gael Camara MD [address] [place], [place] [phone] Social History Tobacco Use Types Packs/Day Years Used Date Smoking Tobacco: Never Assessed Comments Unknown Sex and Gender Information Value Date Recorded Sex Assigned at Not on file Legal Sex Female 2:58 AM CUSTOMER SUPPORT ASSOCIATE Gender Identity Not on file Sexual Orientation Not on file documented as of this encounter Plan of Treatment Not on file documented as of this encounter Visit Diagnoses Not on filedocumented in this encounter Care Teams Office Communication Professor Relationship Specialty Start Date End Date Génesis Valdez MD PCP - General Family Practice 09/05/20 documented as of this encounter
--- OUTSIDE RECORDS SUMMARY | 2025-09-29 12:47 | XMS_ITS | Encounter Summary ---
Author Organization [facility] Address [address] [place] [address] Care Team Providers Care Employee Training Specialist Name Role Phone Génesis Valdez MD Primary Care Pro vider Encounter Details Date Type Department Care Team (Late st Contact Info) Description 08/02/2001 Outpatient Historical [facility] [address] [place] [phone] Kellee Zhou Social History Tobacco Use Types Packs/Day Years Used Date Smoking Tobacco: Never Assessed Comments Unknown Sex and Gender Information Value Date Recorded Sex Assigned at Not on file Legal Sex Female 2:58 AM BRUSHER WARP Gender Identity Not on file Sexual Orientation Not on file documented as of this encounter Plan of Treatment Not on file documented as of this encounter Visit Diagnoses Not on filedocumented in this encounter Care Teams Employee Training Specialist Relationship Specialty Start Date End Date Génesis Valdez MD PCP - General Family Practice 09/05/20 documented as of this encounter
--- OUTSIDE RECORDS SUMMARY | 2025-09-29 12:47 | XMS_ITS | Encounter Summary ---
Author Organization [facility] Address [address] [place] [address] Care Team Providers Care Engraver Flatware Name Role Phone Génesis Valdez MD Primary Care Pro vider Encounter Details Date Type Department Care Team (Late st Contact Info) Description 03/28/2004 Outpatient Historical [facility] [place] [address] [place] [phone] Gael Camara MD [address] [place], [place] [phone] Social History Tobacco Use Types Packs/Day Years Used Date Smoking Tobacco: Never Assessed Comments Unknown Sex and Gender Information Value Date Recorded Sex Assigned at Not on file Legal Sex Female 2:58 AM VEGETABLE HARVEST WORKER Gender Identity Not on file Sexual Orientation Not on file documented as of this encounter Plan of Treatment Not on file documented as of this encounter Visit Diagnoses Not on filedocumented in this encounter Care Teams Engraver Flatware Relationship Specialty Start Date End Date Génesis Valdez MD PCP - General Family Practice 09/05/20 documented as of this encounter
--- OUTSIDE RECORDS SUMMARY | 2025-09-29 12:47 | XMS_ITS | Encounter Summary ---
Author Organization [facility] Address [address] [place] [address] Care Team Providers Care Evs Tech Name Role Phone Génesis Valdez MD Primary Care Pro vider Encounter Details Date Type Department Care Team (Late st Contact Info) Description 06/24/2007 Outpatient Historical [facility] [place] [address] [place] [phone] Gael Camara MD [address] [place], [place] [phone] Social History Tobacco Use Types Packs/Day Years Used Date Smoking Tobacco: Never Assessed Comments Unknown Sex and Gender Information Value Date Recorded Sex Assigned at Not on file Legal Sex Female 2:58 AM TIME CLOCK REPAIRER Gender Identity Not on file Sexual Orientation Not on file documented as of this encounter Plan of Treatment Not on file documented as of this encounter Visit Diagnoses Not on filedocumented in this encounter Care Teams Evs Tech Relationship Specialty Start Date End Date Génesis Valdez MD PCP - General Family Practice 09/05/20 documented as of this encounter
--- OUTSIDE RECORDS SUMMARY | 2025-09-29 12:47 | XMS_ITS | Encounter Summary ---
Author Organization [facility] Address [address] [place] [address] Care Team Providers Care Antique Jewelry Repairer Name Role Phone Génesis Valdez MD Primary Care Pro vider Encounter Details Date Type Department Care Team (Late st Contact Info) Description 10/26/2003 Outpatient Historical [facility] [address] [place] [phone] Kellee Zhou Social History Tobacco Use Types Packs/Day Years Used Date Smoking Tobacco: Never Assessed Comments Unknown Sex and Gender Information Value Date Recorded Sex Assigned at Not on file Legal Sex Female 2:58 AM LIBRARY ATTENDANT Gender Identity Not on file Sexual Orientation Not on file documented as of this encounter Plan of Treatment Not on file documented as of this encounter Visit Diagnoses Not on filedocumented in this encounter Care Teams Antique Jewelry Repairer Relationship Specialty Start Date End Date Génesis Valdez MD PCP - General Family Practice 09/05/20 documented as of this encounter
--- OUTSIDE RECORDS SUMMARY | 2025-09-29 12:47 | XMS_ITS | Encounter Summary ---
Author Organization [facility] Address [address] [place] [address] Care Team Providers Care Digital Asset Coordinator Name Role Phone Génesis Valdez MD Primary Care Pro vider Encounter Details Date Type Department Care Team (Late st Contact Info) Description 06/16/2007 Outpatient Historical [facility] [place] [address] [place] [phone] Gael Camara MD [address] [place], [place] [phone] Social History Tobacco Use Types Packs/Day Years Used Date Smoking Tobacco: Never Assessed Comments Unknown Sex and Gender Information Value Date Recorded Sex Assigned at Not on file Legal Sex Female 2:58 AM DIELECTRIC PRESS OPERATOR Gender Identity Not on file Sexual Orientation Not on file documented as of this encounter Plan of Treatment Not on file documented as of this encounter Visit Diagnoses Not on filedocumented in this encounter Care Teams Digital Asset Coordinator Relationship Specialty Start Date End Date Génesis Valdez MD PCP - General Family Practice 09/05/20 documented as of this encounter
--- OUTSIDE RECORDS SUMMARY | 2025-09-29 12:47 | XMS_ITS | Encounter Summary ---
Author Organization [facility] Address [address] [place] [address] Care Team Providers Care Sewing Machines Salesperson Name Role Phone Génesis Valdez MD Primary Care Pro vider Encounter Details Date Type Department Care Team (Late st Contact Info) Description 02/18/2006 Outpatient Historical [facility] [place] [address] [place] [phone] Gael Camara MD [address] [place], [place] [phone] Social History Tobacco Use Types Packs/Day Years Used Date Smoking Tobacco: Never Assessed Comments Unknown Sex and Gender Information Value Date Recorded Sex Assigned at Not on file Legal Sex Female 2:58 AM MEETING FACILITATOR Gender Identity Not on file Sexual Orientation Not on file documented as of this encounter Plan of Treatment Not on file documented as of this encounter Visit Diagnoses Not on filedocumented in this encounter Care Teams Sewing Machines Salesperson Relationship Specialty Start Date End Date Génesis Valdez MD PCP - General Family Practice 09/05/20 documented as of this encounter
--- OUTSIDE RECORDS SUMMARY | 2025-09-29 12:47 | XMS_ITS | Encounter Summary ---
Author Organization [facility] Address [address] [place] [address] Care Team Providers Care Yard Demurrage Clerk Name Role Phone Génesis Valdez MD Primary Care Pro vider Encounter Details Date Type Department Care Team (Late st Contact Info) Description 01/28/2004 Emergency [facility] Sabrina Villa MD [address] [place] [address] Er, Authorized P NO ADDRESS ON FILE DEPRESSIVE DISORDER NEC (Primary Dx) Social History Tobacco Use Types Packs/Day Years Used Date Smoking Tobacco: Never Assessed Comments Unknown Sex and Gender Information Value Date Recorded Sex Assigned at Not on file Legal Sex Female 2:58 AM ENGINEERING TECHNOLOGY INSTRUCTOR Gender Identity Not on file Sexual Orientation Not on file documented as of this encounter Plan of Treatment Not on file documented as of this encounter Visit Diagnoses Diagnosis Depressive disorder, not elsewhere classified- Primary documented in this encounter Care Teams Yard Demurrage Clerk Relationship Specialty Start Date End Date Génesis Valdez MD PCP - General Family Practice 09/05/20 documented as of this encounter
--- OUTSIDE RECORDS SUMMARY | 2025-09-29 12:47 | XMS_ITS | Encounter Summary ---
Author Organization [facility] Address [address] [place] [address] Care Team Providers Care Plant Protection Guard Name Role Phone Génesis Valdez MD Primary Care Pro vider Encounter Details Date Type Department Care Team (Late st Contact Info) Description 12/22/2002 Outpatient Historical [facility] [place] [address] [place] [phone] Gael Camara MD [address] [place], [place] [phone] Social History Tobacco Use Types Packs/Day Years Used Date Smoking Tobacco: Never Assessed Comments Unknown Sex and Gender Information Value Date Recorded Sex Assigned at Not on file Legal Sex Female 2:58 AM CONSOLE ATTENDANT Gender Identity Not on file Sexual Orientation Not on file documented as of this encounter Plan of Treatment Not on file documented as of this encounter Visit Diagnoses Not on filedocumented in this encounter Care Teams Plant Protection Guard Relationship Specialty Start Date End Date Génesis Valdez MD PCP - General Family Practice 09/05/20 documented as of this encounter
--- OUTSIDE RECORDS SUMMARY | 2025-09-29 12:47 | XMS_ITS | Encounter Summary ---
Author Organization [facility] Address [address] [place] [address] Care Team Providers Care Boiler Technician Name Role Phone Génesis Valdez MD Primary Care Pro vider Encounter Details Date Type Department Care Team (Late st Contact Info) Description 08/09/2003 Outpatient Historical [facility] [place] [address] [place] [phone] Gael Camara MD [address] [place], [place] [phone] Social History Tobacco Use Types Packs/Day Years Used Date Smoking Tobacco: Never Assessed Comments Unknown Sex and Gender Information Value Date Recorded Sex Assigned at Not on file Legal Sex Female 2:58 AM GAME ENGINEER Gender Identity Not on file Sexual Orientation Not on file documented as of this encounter Plan of Treatment Not on file documented as of this encounter Visit Diagnoses Not on filedocumented in this encounter Care Teams Boiler Technician Relationship Specialty Start Date End Date Génesis Valdez MD PCP - General Family Practice 09/05/20 documented as of this encounter
--- OUTSIDE RECORDS SUMMARY | 2025-09-29 12:47 | XMS_ITS | Encounter Summary ---
Author Organization [facility] Address [address] [place] [address] Care Team Providers Care Shotgun Shell Assembly Machine Operator Name Role Phone Génesis Valdez MD Primary Care Pro vider Encounter Details Date Type Department Care Team (Latest Contact Info) Description 01/30/2004 Outpatient Historical [facility] [place], [place] [address] [place] [address] BIPOLAR AFFECTIVE NOS (CMS/HCC) (Primary Dx) Social History Tobacco Use Types Packs/Day Years Used Date Smoking Tobacco: Never Assessed Comments Unknown Sex and Gender Information Value Date Recorded Sex Assigned at Not on file Legal Sex Female 2:58 AM BRANCH RETAIL EXECUTIVE Gender Identity Not on file Sexual Orientation Not on file documented as of this encounter Plan of Treatment Not on file documented as of this encounter Visit Diagnoses Diagnosis Bipolar I disorder, most recent episode (or current) unspecified (CMS/HCC)- Primary Bipolar I disorder, most recent episode (or current) unspecified documented in this encounter Care Teams Shotgun Shell Assembly Machine Operator Relationship Specialty Start Date End Date Génesis Valdez MD PCP - General Family Practice 09/05/20 documented as of this encounter
--- OUTSIDE RECORDS SUMMARY | 2025-09-29 12:47 | XMS_ITS | Encounter Summary ---
Author Organization [facility] Address [address] [place] [address] Care Team Providers Care Blemish Remover Name Role Phone Génesis Valdez MD Primary Care Pro vider Encounter Details Date Type Department Care Team (Late st Contact Info) Description 01/15/2006 Outpatient Historical [facility] [place] [address] [place] [phone] Gael Camara MD [address] [place], [place] [phone] Social History Tobacco Use Types Packs/Day Years Used Date Smoking Tobacco: Never Assessed Comments Unknown Sex and Gender Information Value Date Recorded Sex Assigned at Not on file Legal Sex Female 2:58 AM SENIOR SOFTWARE ENGINEER Gender Identity Not on file Sexual Orientation Not on file documented as of this encounter Plan of Treatment Not on file documented as of this encounter Visit Diagnoses Not on filedocumented in this encounter Care Teams Blemish Remover Relationship Specialty Start Date End Date Génesis Valdez MD PCP - General Family Practice 09/05/20 documented as of this encounter
--- OUTSIDE RECORDS SUMMARY | 2025-09-29 12:47 | XMS_ITS | Encounter Summary ---
Author Organization [facility] Address [address] [place] [address] Care Team Providers Care Senior Ux Developer Name Role Phone Génesis Valdez MD Primary Care Pro vider Encounter Details Date Type Department Care Team (Late st Contact Info) Description 06/02/2002 Outpatient Historical [facility] [address] [place] [phone] Kellee Zhou Social History Tobacco Use Types Packs/Day Years Used Date Smoking Tobacco: Never Assessed Comments Unknown Sex and Gender Information Value Date Recorded Sex Assigned at Not on file Legal Sex Female 2:58 AM STUD SETTER Gender Identity Not on file Sexual Orientation Not on file documented as of this encounter Plan of Treatment Not on file documented as of this encounter Visit Diagnoses Not on filedocumented in this encounter Care Teams Senior Ux Developer Relationship Specialty Start Date End Date Génesis Valdez MD PCP - General Family Practice 09/05/20 documented as of this encounter
[2025-09-29 18:20] LABS: Hematocrit 38.7 % (37.0-47.0); Hemoglobin 12.4 g/dL (12.0-15.0); Immature Granulocyte Percent A 0.4 % (0-0.5); Lymphocytes Absolute Auto 2.94 K/mm3 (0.9-3.2); Mean Corpuscular HGB Conc 32.0 g/dl (32-36); Mean Corpuscular Hemoglobin 27.2 pg (26-34); Mean Corpuscular Volume 84.9 fl (80-100); Nucleated Red Blood Cells Absolute Auto 0.000 K/mm3 (0.0-0.012); Nucleated Red Blood Cells Perc 0.0 % (0.0-0.2); Platelet Count Result 302 k/mm3 (150-375); Red Blood Count 4.56 M/mm3 (4.2-5.4); White Blood Count 7.4 K/mm3 (4.5-10.0)
[2025-09-29 18:34] LABS: Alanine Aminotransferase 38 U/L (6-35); Albumin Level 4.5 g/dL (3.5-5.1); Alkaline Phosphatase 97 U/L (38-126); Anion Gap 7 mmol/L (4-12); Aspartate Amino Transferase 53 U/L (14-36); Bilirubin,Total 0.6 mg/dL (0.2-1.3); Blood Urea Nitrogen 13 mg/dL (7-17); Calcium 9.6 mg/dL (8.4-10.2); Carbon Dioxide 25 mmol/L (22-30); Chloride 105 mmol/L (98-107); Estimated Glomerular Filt Rate > 60; Glucose 68 mg/dL (65-110); Potassium 4.3 mmol/L (3.4-5.0); Sodium 137 mmol/L (137-145); Total Protein 8.0 g/dL (6.3-8.2)
[2025-09-29 19:02] LABS: Thyroid Stimulating Hormone Reflex 0.671 uIU/mL (0.465-4.68)
== END 2025-09-29 12:45 | disposition home or self-care (01) ==
LOC: ANHGOSHLAB 12:45
PROVIDERS: PCP Family Medicine; Visit Provider Nurse Practitioner Family
DX: E03.9 Hypothyroidism, unspecified (principal)
CPT/HCPCS: 36415; 80053; 84443; 85025